=== PATIENT | male | born 1990 | race Caucasian/White ===

== ENCOUNTER 2016-07-22 16:29 | Inpatient (IN) | payer OTHER ==
[2016-07-22 17:41] VITALS: BMI 26.6
--- NOTE | 2016-07-22 20:53 | HP ---
COWS - Scale Resting Pulse: 1= [place] 81-100 Sweatin= Chills/Flushing Restless Observation: 1= Difficult to Sit Still Pupil Size: 0= Normal to Room Light Bone or Joint Aches: 2= Severe Diffuse Aches Runny Nose/ Eye Tearin= Runny Nose/Eyes GI Upset > 30mins: 1= Stomach Cramp Tremor Observation: 2= Slight Tremor Visible Yawning Observation: 0= None Anxiety or Irritability: 2=Irritable/Anxious Goose Flesh Skin: 0=Smooth Skin COWS Score: 12 CIWA Score - CIWA Score Nausea/Vomitin-No Nausea/No Vomiting Muscle Tremors: 2 Anxiety: 2 Agitation: 1-Slight > Activity Paroxysmal Sweats: 1-Minimal Palms Moist Orientation: 0-Oriented Tacttile Disturbances: 0-None Auditory Disturbances: 0-None Visual Disturbances: 0-None Headache: 0-None Present CIWA-Ar Total Score: 6 Admission ROS S - HPI Chief Complaint: withdrawal sx Allergies/Adverse Reactions: Allergies Allergy/AdvReac Type Severity Reaction Status Date / Time No Known Allergies Allergy Verified 07/22/16 20:50 History of Present Illness: 26 years old male with long history of heroin xanax nicotine dependence, denies medical has anxiety depression longest sobriety 6 months is admitted to detox Exam Limitations: No Limitations - Ebola screening Have you traveled outside of the country in the last 21 days: No Have you had contact with anyone from an Ebola affected area: No Have you been sick,other than usual withdrawal symptoms: No Do you have a fever: No - Review of Systems Constitutional: Chills, Loss of Appetite, Changes in sleep, Unexplained wgt Loss EENT: reports: No Symptoms Reported Respiratory: reports: No Symptoms reported Cardiac: reports: No Symptoms Reported GI: reports: Constipated, Poor Appetite, Poor Fluid Intake, Abdominal cramping : reports: No Symptoms Reported Musculoskeletal: reports: Back Pain, Joint Pain, Muscle Pain, Neck Pain Integumentary: reports: Change in Color (inner elbows both elbows) Neuro: reports: Tremors Endocrine: reports: No Symptoms Reported Hematology: reports: No Symptoms Reported Psychiatric: reports: Judgement Intact, Anxious, Depressed Other Systems: Reviewed and Negative Patient History - Patient Medical History Hx Anemia: No Hx Asthma: No Hx Chronic Obstructive Pulmonary Disease (COPD): No Hx Cancer: No Hx Cardiac Disorders: No Hx Congestive Heart Failure: No Hx Hypertension: No Hx Hypercholesterolemia: No Hx Pacemaker: No HX Cerebrovascular Accident: No Hx Seizures: No Hx Dementia: No Hx Diabetes: No Hx Gastrointestinal Disorders: No Hx Liver Disease: No Hx Genitourinary Disorders: No Hx Sexually Transmitted Disorders: No Hx Renal Disease (ESRD): No Hx Thyroid Disease: No Hx Human Immunodeficiency Virus (HIV): No Hx Hepatitis C: No Hx Depression: Yes Hx Suicide Attempt: No Hx Bipolar Disorder: No Hx Schizophrenia: No - Patient Surgical History Past Surgical History: No - PPD History Previous Implant?: Yes Documented Results: Negative w/o proof Implanted On Prior [facility] Admission?: No PPD to be Administered?: Yes - Smoking Cessation Smoking history: Current every day smoker Have you smoked in the past 12 months: Yes Aproximately how many cigarettes per day: 20 Cigars Per Day: 0 Hx Chewing Tobacco Use: No Initiated information on smoking cessation: Yes 'Breaking Loose' booklet given: 07/22/16 - Substance & Tx. History Hx Alcohol Use: No Hx Substance Use: Yes Substance Use Type: Heroin, Opiates, Tranquilizers Hx Substance Use Treatment: No - Substances Abused Alprazolam (Xanax) Route: Oral Frequency: 3-6 times per week Amount used: 4 mg Age of first use: 19 Date of Last Use: 07/20/16 Heroin Route: Injection Frequency: Daily Amount used: 50 bags Age of first use: 23 Date of Last Use: 07/22/16 Family Disease History - Family Disease History Family History: Denies Admission Physical Exam S - Vital Signs Vital Signs: Vital Signs - 24 hr 07/22/16 17:39 Temperature 97.6 F Pulse Rate 91 H Respiratory 20 Rate Blood Pressure 132/82 - Physical General Appearance: Yes: Appropriately Dressed, Mild Distress, Severe Distress, Tremorous, Irritable, Sweating, Anxious HEENTM: Yes: Hearing grossly Normal, Normal ENT Inspection, Normocephalic, Normal Voice Respiratory: Yes: Chest Non-Tender, Lungs Clear, Normal Breath Sounds, No Respiratory Distress, No Accessory Muscle Use Neck: Yes: Supple, Trachea in good position Breast: Yes: Breasts Symetrical Cardiology: Yes: Regular Rhythm, S1, S2, Tachycardia Abdominal: Yes: Non Tender, Soft Genitourinary: Yes: Within Normal Limits Back: Yes: Normal Inspection Musculoskeletal: Yes: full range of Motion, Gait Steady, Back pain, Muscle Pain Extremities: Yes: Normal Range of Motion, Non-Tender, Tremors Neurological: Yes: Alert, Motor Strength 5/5, Normal Response, Depressed Affect Integumentary: Yes: Warm Lymphatic: Yes: Within Normal Limits - Diagnostic (1) Opioid dependence with withdrawal Current Visit: Yes Status: Acute (2) Nicotine dependence Current Visit: Yes Status: Acute Qualifiers: Nicotine product type: cigarettes Substance use status: uncomplicated Qualified Code(s): F17.210 - Nicotine dependence, cigarettes, uncomplicated (3) Weight loss Current Visit: Yes Status: Acute Cleared for Admission [facility] - Detox or Rehab [facility] Level of Care: Medically Managed Detox Regimen/Protocol: Methadone [facility] Breath Alcohol Content Breath Alcohol Content: 0 Urine Drug Screen - Control Is Test Valid: Yes - Results Drug Screen Negative: No Urine Drug Screen Results: OPI-Opiates, BZO-Benzodiazepines, OXY-Oxycodone
[2016-07-22] MEDS ORDERED: P-EPHED 60MG/TRIPROLIDI 2.5MG TABLET PO PRN (20:58)
[2016-07-22] MEDS ORDERED: LOPERAMIDE HCL 2 MG CAPSULE PO PRN (20:58)
[2016-07-22] MEDS ORDERED: MAG HYDROX/AL HYDROX/SIMETH 30 ML UNIT-DOSE CUP PO PRN (20:58)
[2016-07-22] MEDS ORDERED: diphenhydrAMINE HCL 50 MG CAPSULE PO PRN (20:58)
[2016-07-22] MEDS ORDERED: METHADONE HCL 10 MG TABLET (FOR DETOX USE ONLY) PO ONE ×2 (20:58→23:00)
[2016-07-22] MEDS ORDERED: MAGNESIUM CITRATE 300 ML BOTTLE PO PRN (20:58)
[2016-07-22] MEDS ORDERED: guaiFENesin/D-METHORPHAN HB 10 ML UNIT-DOSE CUPS PO PRN (20:58)
[2016-07-22] MEDS ORDERED: IBUPROFEN 400 MG TABLET (FP) PO PRN (20:58)
[2016-07-22] MEDS ORDERED: MAGNESIUM HYDROX 2400MG/30ML ORAL SUSPENSION 30 ML CUP PO PRN (20:58)
[2016-07-22] MEDS ORDERED: ACETAMINOPHEN 325 MG TABLET (FP) PO PRN (20:58)
[2016-07-22] MEDS ORDERED: MENTHOL/PHENOL 1 EACH UD MM PRN (20:58)
[2016-07-22] MEDS: diazePAM 5 MG TABLET PO PRN (22:30)
[2016-07-22] MEDS: THIAMINE HCL 100 MG TABLET (FP) PO SCH (22:31)
[2016-07-22] MEDS: NICOTINE POLACRILEX 2 MG GUM BC PRN (22:34)
[2016-07-22 23:13] LABS: PH,URINE 6.5 (5.0-8.0); URINE APPEARANCE CLEAR; URINE BILIRUBIN NEGATIVE (NEGATIVE); URINE BLOOD NEGATIVE (NEGATIVE); URINE COLOR LT. YELLOW; URINE GLUCOSE (UA) NEGATIVE (NEGATIVE); URINE KETONE TRACE (NEGATIVE); URINE LEUK ESTERASE NEGATIVE (NEGATIVE); URINE NITRITE NEGATIVE (NEGATIVE); URINE PROTEIN NEGATIVE (NEGATIVE); URINE UROBILINOGEN 0.2 E.U/dl E.U./dl (0.2-1.0)
[2016-07-23 09:59] LABS: MCH 31.5 pg (25.7-33.7); MCHC 34.6 g/dl (32.0-35.9); MEAN CELL VOLUME 91.2 fl (80-96); PLATELET COUNT 293 K/MM3 (134-434); RDW 12.6 % (11.9-15.9); WHITE BLOOD COUNT 7.6 K/mm3 (4.0-10.0)
[2016-07-23] MEDS ORDERED: METHADONE HCL 10 MG TABLET (FOR DETOX USE ONLY) PO ONE (10:00)
--- NOTE | 2016-07-23 10:10 | PN ---
S CIWA - CIWA Score Nausea/Vomitin Muscle Tremors: 3 Anxiety: 3 Agitation: 3 Paroxysmal Sweats: 1-Minimal Palms Moist Orientation: 0-Oriented Tacttile Disturbances: 1-Very Mild Itch/Numbness Auditory Disturbances: 1-Very Mild Visual Disturbances: 1-Very Mild Sensitivity Headache: 2-Mild CIWA-Ar Total Score: 18 BHS COWS - Scale Resting Pulse: 1= [place] 81-100 Sweatin=Flushed/Facial Moisture Restless Observation: 3= Extraneous Movement Pupil Size: 1= Pupils >than Normal Bone or Joint Aches: 2= Severe Diffuse Aches Runny Nose/ Eye Tearin= Runny Nose/Eyes GI Upset > 30mins: 3= Vomiting/Diarrhea Tremor Observation of Outstretched Hands: 2= Slight Tremor Visible Yawning Observation: 1= 1-2x During Session Anxiety or Irritability: 2=Irritable/Anxious Goose Flesh Skin: 0=Smooth Skin COWS Score: 19 S Progress Note (SOAP) Subjective: ALERT,IRRITABLE,ANXIOUS,INTERRUPTED SLEEP,TREMOR,PAIN IN THE BODY AND BACK Objective: 07/23/16 10:09 Vital Signs Temperature 95.9 F L 07/23/16 09:36 Pulse Rate 82 07/23/16 09:36 Respiratory Rate 18 07/23/16 09:36 Blood Pressure 127/84 07/23/16 09:36 O2 Sat by Pulse Oximetry (%) EKG NSR Laboratory Last Values Urine Color Lt. yellow 07/22/16 23:00 Urine Appearance Clear 07/22/16 23:00 Urine pH 6.5 (5.0-8.0) 07/22/16 23:00 Ur Specific [place] 1.015 (1.001-1.035) 07/22/16 23:00 Urine Protein Negative (NEGATIVE) 07/22/16 23:00 Urine Glucose (UA) Negative (NEGATIVE) 07/22/16 23:00 Urine Ketones Trace (NEGATIVE) H 07/22/16 23:00 Urine Blood Negative (NEGATIVE) 07/22/16 23:00 Urine Nitrite Negative (NEGATIVE) 07/22/16 23:00 Urine Bilirubin Negative (NEGATIVE) 07/22/16 23:00 Urine Urobilinogen 0.2 e.u/dl E.U./dl (0.2-1.0) 07/22/16 23:00 Ur Leukocyte Esterase Negative (NEGATIVE) 07/22/16 23:00 LABS PENDING Assessment: 07/23/16 10:10 WITHDRAWAL SYMPTOM Plan: CONTINUE DETOX
[2016-07-23] MEDS: PRENATAL VITAMINS W/ FOLIC ACID TABLET (FP) PO SCH (10:13)
[2016-07-23] MEDS: diazePAM 5 MG TABLET PO PRN ×4 (10:13→22:15)
[2016-07-23] MEDS: NICOTINE 21 MG/24 HOURS TOPICAL PATCH TD SCH (10:14)
[2016-07-23] MEDS: NICOTINE POLACRILEX 2 MG GUM BC PRN ×3 (10:16→17:27)
[2016-07-23 10:27] LABS: ALBUMIN 3.6 g/dl (3.4-5.0); ALK PHOS 89 U/L (45-117); ANION GAP 9 (8-16); BILIRUBIN,TOTAL 0.3 mg/dL (0.2-1.0); CALCIUM 9.1 mg/dL (8.5-10.1); CO2 29 mmol/L (21-32); CREATININE 0.9 mg/dL (0.7-1.3); GLUCOSE,RANDOM 93 mg/dL (74-106); SGOT/AST 17 U/L (15-37); SGPT/ALT 27 U/L (12-78); TOT PROT 6.8 g/dl (6.4-8.2)
[2016-07-23] MEDS ORDERED: cloNIDine HCL 0.1 MG TABLET PO ONE (13:01)
--- NOTE | 2016-07-23 15:01 | CONSULT ---
[facility] Psychiatric Consult - Data Date of interview: 07/23/16 Admission source: 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 Substance Abuse History: - Smoking Cessation. Smoking history: Current every day smoker. Have you smoked in the past 12 months: Yes. Aproximately how many cigarettes per day: 20. Cigars Per Day: 0. Hx Chewing Tobacco Use: No. Initiated information on smoking cessation: Yes. 'Breaking Loose' booklet given : 07/22/16. - Substance & Tx. History. Hx Alcohol Use: No. Hx Substance Use: Yes. Substance Use Type: Heroin, Opiates, Tranquilizers. Hx Substance Use Treatment: No. - Substances Abused. Alprazolam (Xanax). Route: Oral. Frequency: 3-6 times per week. Amount used: 4 mg. Age of first use: 19. Date of Last Use: 07/20/16. Heroin. Route: Injection. Frequency: Daily. Amount used: 50 bags. Age of first use: 23. Date of Last Use: 07/22/16. Patient confirmed. Medical History: Patient endorses good general health. Psychiatric History: No reported history of psychiatric hospitalizations.However ,the patient indicates recent treatment for anxiety and depression.Mr Haley was given scripts for bupropion 300 mg/day + seroquel 150 mg/hs (as shown in review of pharmacy claims of 06/25/16 @ [facility] # [id number]).He states that he does not want to continue with bupropion and he is now requesting prozac + seroquel.Patient has also indicated that he is " not always " compliant with his prescribed medications.No reported history of suicide attempts. Physical/Sexual Abuse/Trauma History: Patient denies. Additional Comment: Urine Drug Screen Results: OPI-Opiates, BZO-Benzodiazepines , OXY-Oxycodone.Noted. Mental Status Exam - Mental Status Exam Alert and Oriented to: Time, Place, Person Cognitive Function: Good Patient Appearance: Well Groomed Mood: Nervous, Withdrawn, Irritable Affect: Mood Congruent Patient Behavior: Fatigued, Guarded, Cooperative Speech Pattern: Clear, Appropriate Voice Loudness: Normal Thought Process: Goal Oriented Thought Disorder: Not Present Hallucinations: Denies Suicidal Ideation: Denies Homicidal Ideation: Denies Insight/Judgement: Poor Sleep: Poorly, Difficulty falling asleep Appetite: Good Muscle strength/Tone: Normal Gait/Station: Normal Psychiatric Findings - Problem List ([place] 1, 2,3) (1) Opioid dependence with withdrawal Current Visit: Yes Status: Acute (2) Nicotine dependence Current Visit: Yes Status: Acute Qualifiers: Nicotine product type: cigarettes Substance use status: uncomplicated Qualified Code(s): F17.210 - Nicotine dependence, cigarettes, uncomplicated (3) Sedative hypnotic or anxiolytic dependence Current Visit: Yes Status: Acute (4) Substance induced mood disorder Current Visit: Yes Status: Acute (5) Mood disorder Current Visit: Yes Status: Suspected (6) Insomnia Current Visit: Yes Status: Acute - Initial Treatment Plan Initial Treatment Plan: Psychoeducation.Detoxification.Medications : prozac 10 mg po daily + seroquel 100 mg po hs.Side effects/benefits discussed with patient.He agrees with this plan of care.Observation.
--- NOTE | 2016-07-23 18:10 | EKG ---
Test Reason : Blood Pressure : / mmHG Vent. Rate : 084 BPM Atrial Rate : 084 BPM P-R Int : 180 ms QRS Dur : 098 ms QT Int : 378 ms P-R-T Axes : 070 063 065 degrees QTc Int : 446 ms NORMAL SINUS RHYTHM MINIMAL VOLTAGE CRITERIA FOR LVH, MAY BE NORMAL VARIANT BORDERLINE ECG NO PREVIOUS ECGS AVAILABLE Confirmed by CARLOS KEITA MD ([id number]) on 07/23/2016 6:10:02 PM Referred By: Confirmed By:CARLOS KEITA MD
[2016-07-23] MEDS: THIAMINE HCL 100 MG TABLET (FP) PO SCH (22:15)
[2016-07-23] MEDS: QUEtiapine FUMARATE 100 MG TABLET (FP) PO SCH (22:15)
[2016-07-23] MEDS: cloNIDine HCL 0.1 MG TABLET PO SCH (22:16)
[2016-07-24] MEDS: diazePAM 5 MG TABLET PO PRN ×4 (07:27→22:29)
--- NOTE | 2016-07-24 09:12 | PN ---
[facility] CIWA - CIWA Score Nausea/Vomitin Muscle Tremors: 3 Anxiety: 3 Agitation: 2 Paroxysmal Sweats: 1-Minimal Palms Moist Orientation: 0-Oriented Tacttile Disturbances: 1-Very Mild Itch/Numbness Auditory Disturbances: 1-Very Mild Visual Disturbances: 1-Very Mild Sensitivity Headache: 2-Mild CIWA-Ar Total Score: 17 BHS COWS - Scale Resting Pulse: 0= [place] 80 or Below Sweatin= Chills/Flushing Restless Observation: 3= Extraneous Movement Pupil Size: 1= Pupils >than Normal Bone or Joint Aches: 2= Severe Diffuse Aches Runny Nose/ Eye Tearin= Runny Nose/Eyes GI Upset > 30mins: 3= Vomiting/Diarrhea Tremor Observation of Outstretched Hands: 2= Slight Tremor Visible Yawning Observation: 1= 1-2x During Session Anxiety or Irritability: 2=Irritable/Anxious Goose Flesh Skin: 0=Smooth Skin COWS Score: 17 S Progress Note (SOAP) Subjective: ALERT,IRRITABLE,ANXIOUS,PAIN IN THE BODY AND BACK,TREMOR,INTERRUPTED SLEEP Objective: 07/24/16 09:10 Vital Signs Temperature 96.7 F L 07/24/16 06:27 Pulse Rate 74 07/24/16 06:27 Respiratory Rate 18 07/24/16 06:27 Blood Pressure 122/70 07/24/16 06:27 O2 Sat by Pulse Oximetry (%) Laboratory Last Values WBC 7.6 K/mm3 (4.0-10.0) 07/23/16 07:00 RBC 4.58 M/mm3 (4.00-5.60) 07/23/16 07:00 Hgb 14.4 GM/dL (11.7-16.9) 07/23/16 07:00 Hct 41.8 % (35.4-49) 07/23/16 07:00 MCV 91.2 fl (80-96) 07/23/16 07:00 MCHC 34.6 g/dl (32.0-35.9) 07/23/16 07:00 RDW 12.6 % (11.9-15.9) 07/23/16 07:00 Plt Count 293 K/MM3 (134-434) 07/23/16 07:00 MPV 9.0 fl (7.5-11.1) 07/23/16 07:00 Sodium 142 mmol/L (136-145) 07/23/16 07:00 Potassium 4.0 mmol/L (3.5-5.1) 07/23/16 07:00 Chloride 104 mmol/L (98-107) 07/23/16 07:00 Carbon Dioxide 29 mmol/L (21-32) 07/23/16 07:00 Anion Gap 9 (8-16) 07/23/16 07:00 BUN 17 mg/dL (7-18) 07/23/16 07:00 Creatinine 0.9 mg/dL (0.7-1.3) 07/23/16 07:00 Creat Clearance w eGFR > 60 (>60) 07/23/16 07:00 Random Glucose 93 mg/dL (74-106) 07/23/16 07:00 Calcium 9.1 mg/dL (8.5-10.1) 07/23/16 07:00 Total Bilirubin 0.3 mg/dL (0.2-1.0) 07/23/16 07:00 AST 17 U/L (15-37) 07/23/16 07:00 ALT 27 U/L (12-78) 07/23/16 07:00 Alkaline Phosphatase 89 U/L (45-117) 07/23/16 07:00 Total Protein 6.8 g/dl (6.4-8.2) 07/23/16 07:00 Albumin 3.6 g/dl (3.4-5.0) 07/23/16 07:00 Urine Color Lt. yellow 07/22/16 23:00 Urine Appearance Clear 07/22/16 23:00 Urine pH 6.5 (5.0-8.0) 07/22/16 23:00 Ur Specific [place] 1.015 (1.001-1.035) 07/22/16 23:00 Urine Protein Negative (NEGATIVE) 07/22/16 23:00 Urine Glucose (UA) Negative (NEGATIVE) 07/22/16 23:00 Urine Ketones Trace (NEGATIVE) H 07/22/16 23:00 Urine Blood Negative (NEGATIVE) 07/22/16 23:00 Urine Nitrite Negative (NEGATIVE) 07/22/16 23:00 Urine Bilirubin Negative (NEGATIVE) 07/22/16 23:00 Urine Urobilinogen 0.2 e.u/dl E.U./dl (0.2-1.0) 07/22/16 23:00 Ur Leukocyte Esterase Negative (NEGATIVE) 07/22/16 23:00 RPR Titer Nonreactive (NONREACTIVE) 07/23/16 07:00 Assessment: 07/24/16 09:11 WITHDRAWAL SYMPTOM Plan: CONTINUE DETOX
[2016-07-24] MEDS ORDERED: METHADONE HCL 5 MG TABLET (FOR DETOX USE ONLY) PO ONE (10:00)
[2016-07-24] MEDS: cloNIDine HCL 0.1 MG TABLET PO SCH ×2 (10:12→22:29)
[2016-07-24] MEDS: PRENATAL VITAMINS W/ FOLIC ACID TABLET (FP) PO SCH (10:12)
[2016-07-24] MEDS: NICOTINE 21 MG/24 HOURS TOPICAL PATCH TD SCH ×2 (10:13→10:15)
[2016-07-24] MEDS: NICOTINE POLACRILEX 2 MG GUM BC PRN ×2 (10:13→19:21)
[2016-07-24] MEDS: FLUoxetine HCL 10 MG CAPSULE (FP) PO SCH (10:14)
[2016-07-24] MEDS ORDERED: QUEtiapine FUMARATE 50 MG TABLET ONE (21:56)
[2016-07-24] MEDS: THIAMINE HCL 100 MG TABLET (FP) PO SCH (22:29)
[2016-07-24] MEDS: QUEtiapine FUMARATE 100 MG TABLET (FP) PO SCH (22:29)
[2016-07-25] MEDS: diazePAM 5 MG TABLET PO PRN ×4 (06:50→20:40)
--- NOTE | 2016-07-25 09:05 | PN ---
S Progress Note (SOAP) Subjective: ALERT,IRRITABLE,ANXIOUS,INTERRUPTED SLEEP,PAIN IN THE BODY AND BACK Objective: 07/25/16 09:17 Vital Signs Temperature 98.9 F 07/25/16 06:39 Pulse Rate 76 07/25/16 06:39 Respiratory Rate 18 07/25/16 06:39 Blood Pressure 118/74 07/25/16 06:39 O2 Sat by Pulse Oximetry (%) Assessment: 07/25/16 09:17 WITHDRAWAL SYMPTOM Plan: CONTINUE DETOX
--- NOTE | 2016-07-25 09:41 | PN ---
[facility] Progress Note Note: METHADONE DOSE ADJUST,METHADONE 10 MGS PO TODAY,AND METHADONE 5 MGS PO 07/26/16
[2016-07-25] MEDS ORDERED: METHADONE HCL 5 MG TABLET (FOR DETOX USE ONLY) PO ONE (10:00)
[2016-07-25] MEDS ORDERED: METHADONE HCL 10 MG TABLET (FOR DETOX USE ONLY) PO ONE (10:00)
[2016-07-25] MEDS: cloNIDine HCL 0.1 MG TABLET PO SCH ×2 (10:20→21:59)
[2016-07-25] MEDS: FLUoxetine HCL 10 MG CAPSULE (FP) PO SCH (10:20)
[2016-07-25] MEDS: PRENATAL VITAMINS W/ FOLIC ACID TABLET (FP) PO SCH (10:20)
[2016-07-25] MEDS: NICOTINE 21 MG/24 HOURS TOPICAL PATCH TD SCH (10:20)
[2016-07-25] MEDS: NICOTINE POLACRILEX 2 MG GUM BC PRN ×2 (10:21→17:48)
[2016-07-25] MEDS: THIAMINE HCL 100 MG TABLET (FP) PO SCH (21:59)
[2016-07-25] MEDS: QUEtiapine FUMARATE 100 MG TABLET (FP) PO SCH (21:59)
[2016-07-26] MEDS ORDERED: METHADONE HCL 5 MG TABLET (FOR DETOX USE ONLY) PO ONE (06:00)
[2016-07-26 09:30] VITALS: BP 127/73; PULSE 98; TEMP 98.6
[2016-07-26] MEDS ORDERED: METHADONE HCL 10 MG TABLET (FOR DETOX USE ONLY) PO ONE (10:00)
[2016-07-26] MEDS: FLUoxetine HCL 10 MG CAPSULE (FP) PO SCH (10:07)
[2016-07-26] MEDS: cloNIDine HCL 0.1 MG TABLET PO SCH (10:07)
[2016-07-26] MEDS: NICOTINE POLACRILEX 2 MG GUM BC PRN (10:07)
[2016-07-26] MEDS: NICOTINE 21 MG/24 HOURS TOPICAL PATCH TD SCH (10:07)
[2016-07-26] MEDS: PRENATAL VITAMINS W/ FOLIC ACID TABLET (FP) PO SCH (10:07)
--- NOTE | 2016-07-26 10:48 | DS ---
[facility] Detox Discharge Summary Admission Date: 07/22/16 Discharge Date: 07/26/16 - History Present History: Opioid Dependence, Sedative Dependence Pertinent Past History: INSOMNIA - Physical Exam Results Vital Signs: Vital Signs Temperature 98.6 F 07/26/16 09:29 Pulse Rate 98 H 07/26/16 09:29 Respiratory Rate 18 07/26/16 09:29 Blood Pressure 127/73 07/26/16 09:29 O2 Sat by Pulse Oximetry (%) Pertinent Admission Physical Exam Findings: WITHDRAWAL SX. Laboratory Tests 07/22/16 07/23/16 07/23/16 23:00 07:00 07:00 WBC 7.6 RBC 4.58 Hgb 14.4 Hct 41.8 MCV 91.2 MCHC 34.6 RDW 12.6 Plt Count 293 MPV 9.0 Sodium 142 Potassium 4.0 Chloride 104 Carbon Dioxide 29 Anion Gap 9 BUN 17 Creatinine 0.9 Creat Clearance w eGFR > 60 Random Glucose 93 Calcium 9.1 Total Bilirubin 0.3 AST 17 ALT 27 Alkaline Phosphatase 89 Total Protein 6.8 Albumin 3.6 Urine Color Lt. yellow Urine Appearance Clear Urine pH 6.5 Ur Specific [place] 1.015 Urine Protein Negative Urine Glucose (UA) Negative Urine Ketones Trace H Urine Blood Negative Urine Nitrite Negative Urine Bilirubin Negative Urine Urobilinogen 0.2 e.u/dl Ur Leukocyte Esterase Negative RPR Titer 07/23/16 07:00 RPR Titer Nonreactive LABS NOTED - Treatment Hospital Course: Detox Protocol Followed, Detoxed Safely, Responded well, Discharged Condition Good, Rehab Referral Accepted - Medication Discharge Medications: Ambulatory Orders Quetiapine Fumarate [Seroquel] 100 mg PO HS #30 tablet 07/23/16 - Diagnosis (1) Insomnia Current Visit: Yes Status: Acute (2) Nicotine dependence Current Visit: Yes Status: Acute Qualifiers: Nicotine product type: cigarettes Substance use status: uncomplicated Qualified Code(s): F17.210 - Nicotine dependence, cigarettes, uncomplicated (3) Opioid dependence with withdrawal Current Visit: Yes Status: Acute (4) Substance induced mood disorder Current Visit: Yes Status: Acute (5) Mood disorder Current Visit: Yes Status: Suspected (6) Sedative, hypnotic or anxiolytic dependence with withdrawal, uncomplicated Current Visit: Yes Status: Acute - AMA Did Patient Leave Against Medical Advice: No
[2016-07-27] MEDS ORDERED: METHADONE HCL 5 MG TABLET (FOR DETOX USE ONLY) PO ONE (06:00)
== END 2016-07-26 10:49 | disposition other institution (70) | DRG 773 ==
LOC: YASAS 16:29 → Y3N 21:40
PROVIDERS: ADMIT Internal Medicine; ATTEND Internal Medicine
PROC: HZ2ZZZZ Detoxification Services for Substance Abuse Treatment (ICD-10-PCS; principal; 2016-07-22)
DX: F11.23 Opioid dependence with withdrawal (principal); F13.230 Sedative, hypnotic or anxiolytic dependence with withdrawal, uncomplicated; F17.210 Nicotine dependence, cigarettes, uncomplicated; F19.24 Other psychoactive substance dependence with psychoactive substance-induced mood disorder; F39 Unspecified mood [affective] disorder; G47.00 Insomnia, unspecified; R00.0 Tachycardia, unspecified; Z87.898 Personal history of other specified conditions
CPT/HCPCS: 36415; 80053; 81003; 85027; 86593; 93005; 93010

== ENCOUNTER 2016-07-26 10:44 | Inpatient (IN) | payer OTHER ==
[2016-07-26 11:35] VITALS: BMI 27.8
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
[2016-07-26] MEDS ORDERED: P-EPHED 60MG/TRIPROLIDI 2.5MG TABLET PO PRN (14:38)
[2016-07-26] MEDS ORDERED: MAGNESIUM CITRATE 300 ML BOTTLE PO PRN (14:38)
[2016-07-26] MEDS ORDERED: diphenhydrAMINE HCL 50 MG CAPSULE PO PRN (14:38)
[2016-07-26] MEDS ORDERED: LOPERAMIDE HCL 2 MG CAPSULE PO PRN (14:38)
--- NOTE | 2016-07-26 14:55 | HP ---
[facility] Rehab Assess/Revision - Admission History Admitted to Rehab from: [facility] [place] Date of Admission to Rehab: 07/26/16 - Vital signs Vital Signs: Vital Signs Period Temp Pulse Resp BP Sys/Olivares Pulse Ox Last 24 Hr 98.8 F 103 19 124/66 - Findings Detox History & Physical reviewed: Yes Concur with findings: Yes
[2016-07-26] MEDS ORDERED: METHADONE HCL 5 MG TABLET PO ONE (15:38)
[2016-07-26] MEDS: NICOTINE POLACRILEX 2 MG GUM BUC PRN ×2 (18:28→21:18)
[2016-07-26] MEDS: QUEtiapine FUMARATE 100 MG TABLET (FP) PO SCH (21:52)
[2016-07-26] MEDS: THIAMINE HCL 100 MG TABLET (FP) PO SCH (21:52)
[2016-07-27] MEDS ORDERED: METHADONE HCL 10 MG TABLET PO SCH (06:00)
[2016-07-27] MEDS: NICOTINE POLACRILEX 2 MG GUM BUC PRN ×3 (06:47→15:47)
[2016-07-27] MEDS: NICOTINE 21 MG/24 HOURS TOPICAL PATCH TD SCH (10:51)
[2016-07-27] MEDS: PRENATAL VITAMINS W/ FOLIC ACID TABLET (FP) PO SCH (10:51)
[2016-07-27] MEDS: FLUoxetine HCL 10 MG TABLET PO SCH (10:59)
[2016-07-27] MEDS: ACETAMINOPHEN 325 MG TABLET (FP) PO PRN (15:49)
[2016-07-27] MEDS: QUEtiapine FUMARATE 100 MG TABLET (FP) PO SCH (21:22)
[2016-07-27] MEDS: THIAMINE HCL 100 MG TABLET (FP) PO SCH (21:22)
[2016-07-28] MEDS ORDERED: METHADONE HCL 40 MG DISPERSABLE TABLET PO SCH (06:00)
[2016-07-28] MEDS: MAGNESIUM HYDROX 2400MG/30ML ORAL SUSPENSION 30 ML CUP PO PRN (07:03)
[2016-07-28] MEDS: NICOTINE POLACRILEX 2 MG GUM BUC PRN ×4 (07:03→18:54)
[2016-07-28] MEDS: PRENATAL VITAMINS W/ FOLIC ACID TABLET (FP) PO SCH (10:12)
[2016-07-28] MEDS: FLUoxetine HCL 10 MG TABLET PO SCH (10:13)
[2016-07-28] MEDS: NICOTINE 21 MG/24 HOURS TOPICAL PATCH TD SCH (10:13)
[2016-07-28] MEDS: THIAMINE HCL 100 MG TABLET (FP) PO SCH (21:26)
[2016-07-28] MEDS: QUEtiapine FUMARATE 100 MG TABLET (FP) PO SCH (21:26)
[2016-07-29] MEDS ORDERED: METHADONE HCL 10 MG TABLET ONE (05:28)
[2016-07-29] MEDS ORDERED: METHADONE HCL 40 MG DISPERSABLE TABLET ONE (05:28)
[2016-07-29] MEDS ORDERED: METHADONE HCL 40 MG DISPERSABLE TABLET PO SCH (06:00)
[2016-07-29] MEDS ORDERED: METHADONE 40 MG, METHADONE 10 MG PO SCH (06:00)
[2016-07-29] MEDS: PRENATAL VITAMINS W/ FOLIC ACID TABLET (FP) PO SCH (10:05)
[2016-07-29] MEDS: NICOTINE 21 MG/24 HOURS TOPICAL PATCH TD SCH (10:05)
[2016-07-29] MEDS: FLUoxetine HCL 10 MG TABLET PO SCH (10:06)
[2016-07-29] MEDS: NICOTINE POLACRILEX 2 MG GUM BUC PRN ×3 (10:08→21:18)
[2016-07-29] MEDS: MAGNESIUM HYDROX 2400MG/30ML ORAL SUSPENSION 30 ML CUP PO PRN (10:36)
--- NOTE | 2016-07-29 18:54 | PN ---
[facility] Progress Note Note: RECEIVED NURSE CALL PATIENT IS ANXIOUS RECOMMEND DEEP BREATHING EXERCISE AND DISCUSS WITH PSYCHIATRIST FOR POSSIBLE PSYCHOTROPIC MODIFICATION CONTINUE REHAB
[2016-07-29] MEDS: THIAMINE HCL 100 MG TABLET (FP) PO SCH (21:17)
[2016-07-29] MEDS: QUEtiapine FUMARATE 100 MG TABLET (FP) PO SCH (21:17)
[2016-07-30] MEDS ORDERED: METHADONE HCL 10 MG TABLET ONE (04:13)
[2016-07-30] MEDS ORDERED: METHADONE HCL 40 MG DISPERSABLE TABLET ONE (04:14)
[2016-07-30] MEDS ORDERED: METHADONE HCL 10 MG TABLET PO SCH (06:00)
[2016-07-30] MEDS ORDERED: METHADONE 40 MG, METHADONE 20 MG PO SCH (06:00)
[2016-07-30] MEDS: NICOTINE POLACRILEX 2 MG GUM BUC PRN ×6 (06:03→21:06)
[2016-07-30] MEDS: ACETAMINOPHEN 325 MG TABLET (FP) PO PRN ×2 (06:26→15:06)
[2016-07-30] MEDS: PRENATAL VITAMINS W/ FOLIC ACID TABLET (FP) PO SCH (10:12)
[2016-07-30] MEDS: MAGNESIUM HYDROX 2400MG/30ML ORAL SUSPENSION 30 ML CUP PO PRN (10:12)
[2016-07-30] MEDS: FLUoxetine HCL 10 MG TABLET PO SCH (10:12)
[2016-07-30] MEDS: NICOTINE 21 MG/24 HOURS TOPICAL PATCH TD SCH (10:52)
--- NOTE | 2016-07-30 11:16 | PN ---
Psychiatric Progress Note Vital Signs: Vital Signs Period Temp Pulse Resp BP Sys/Olivares Pulse Ox Last 24 Hr 99 F 99 20-20 130/68 Date of Session: 07/30/16 Chief Complaint:: Anxiety HPI: Patient addressing Opoid and Sedative Dependence comorbid with Nicotine Dependence and Anxiety Disorder ROS: Start Vistaril 50 mg po Q 4hrs prn for anxiety Current Medications: Active Medications Generic Name Dose Route Start Last Admin Trade Name Freq PRN Reason Stop Dose Admin Acetaminophen 650 mg 07/26/16 14:38 07/30/16 06:26 Tylenol - PO 650 mg Q4H PRN Administration FEVER OR PAIN Al Hydroxide/Mg Hydroxide 30 ml 07/26/16 14:38 Mylanta Oral Suspension - PO Q6H PRN DYSPEPSIA Diphenhydramine HCl 50 mg 07/26/16 14:38 Benadryl - PO HSMR1 PRN FOR ITCHING Eucalyptus/Menthol/Phenol/Sorbitol 1 each 07/26/16 14:38 Cepastat Lozenge - MM Q4H PRN SORE THROAT Fluoxetine HCl 10 mg 07/27/16 10:00 07/30/16 10:12 Prozac - PO 10 mg DAILY KELLY Administration Guaifenesin 10 ml 07/26/16 14:38 Robitussin Dm - PO Q6H PRN COUGH Hydroxyzine Pamoate 50 mg 07/30/16 11:09 Vistaril - PO Q4H PRN FOR ITCHING Ibuprofen 400 mg 07/26/16 14:38 Motrin - PO Q6H PRN PAIN Loperamide HCl 4 mg 07/26/16 14:38 Imodium - PO Q6H PRN DIARRHEA Magnesium Hydroxide 30 ml 07/26/16 14:38 07/30/16 10:12 Milk Of Magnesia - PO 30 ml DAILY PRN Administration CONSTIPATION Methadone HCl 40 mg/ Methadone 60 mg 07/30/16 06:00 07/30/16 06:00 HCl 20 mg PO 60 mg DAILY@0600 KELLY Administration Nicotine 21 mg 07/27/16 10:00 07/30/16 10:52 Nicoderm Patch - TD 21 mg DAILY KELLY Administration Nicotine Polacrilex 2 mg 07/26/16 14:38 07/30/16 10:15 Nicorette Gum - BUC 2 mg Q2H PRN Administration NICOTINE REPLACEMENT RX Multivit/Folic Acid/Iron 1 tab 07/27/16 10:00 07/30/16 10:12 Vitamins (Sjr) - PO 1 tab DAILY KELLY Administration Pseudoephedrine/Triprolidine 1 combo 07/26/16 14:38 Actifed - PO TID PRN NASAL CONGESTION Quetiapine Fumarate 100 mg 07/26/16 22:00 07/29/16 21:17 Seroquel - PO 100 mg HS KELLY Administration Thiamine HCl 100 mg 07/26/16 22:00 07/29/16 21:17 Vitamin B1 - PO 100 mg HS KELLY Administration Current Side Effect: No Lab tests ordered: Yes Lab tests reviewed: Yes Provider note:: Patient reports that he has been feeling anxious despite taking Prozac 10 mg po daily and Seroquel 100 mg po HS.Told newswriter that he was taking Klonopin for anxiety in the past. He was told by newswriter that he cannot get any Benzodiazepine in this program. Alternative meds for anxiety were presented to him and he was willing to try Vistaril which will be ordered for him at 50 mg po Q 4hrs prn for anxiety Total face to face time:: 25 Mental Status Exam - Mental Status Exam Alert and Oriented to: Time, Place, Person Cognitive Function: Fair Patient Appearance: Well Groomed Mood: Anxious Affect: Appropriate Patient Behavior: Cooperative Speech Pattern: Clear Voice Loudness: Normal Thought Process: Intact Thought Disorder: Not Present Hallucinations: Denies Suicidal Ideation: Denies Homicidal Ideation: Denies Insight/Judgement: Fair Sleep: Fair Appetite: Good Muscle strength/Tone: Normal Gait/Station: Normal Psychiatric Treatment Plan - Problem List (1) Opioid dependence with withdrawal Current Visit: No (2) Sedative hypnotic or anxiolytic dependence Current Visit: No (3) Nicotine dependence Current Visit: No Qualifiers: Nicotine product type: cigarettes Substance use status: uncomplicated Qualified Code(s): F17.210 - Nicotine dependence, cigarettes, uncomplicated (4) Anxiety disorder Current Visit: Yes (5) Substance-induced anxiety disorder Current Visit: Yes (6) ADHD (attention deficit hyperactivity disorder) Current Visit: Yes (7) YOLANDA (generalized anxiety disorder) Current Visit: Yes Initial treatment plan: Start Vistaril 50 mg po Q 4hrs prn for anxiety
[2016-07-30] MEDS ORDERED: hydrOXYzine PAMOATE 50 MG CAPSULE (FP) PO PRN (11:18)
[2016-07-30] MEDS: hydrOXYzine PAMOATE 50 MG CAPSULE (FP) PO PRN ×3 (11:39→18:51)
[2016-07-30] MEDS: QUEtiapine FUMARATE 100 MG TABLET (FP) PO SCH (21:05)
[2016-07-30] MEDS: THIAMINE HCL 100 MG TABLET (FP) PO SCH (21:05)
[2016-07-31] MEDS ORDERED: METHADONE HCL 40 MG DISPERSABLE TABLET ONE (05:07)
[2016-07-31] MEDS ORDERED: METHADONE HCL 10 MG TABLET ONE (05:07)
[2016-07-31] MEDS: METHADONE 40 MG, METHADONE 30 MG PO SCH (06:00)
[2016-07-31] MEDS ORDERED: METHADONE HCL 40 MG DISPERSABLE TABLET PO SCH (06:00)
[2016-07-31] MEDS: NICOTINE POLACRILEX 2 MG GUM BUC PRN ×3 (06:03→21:03)
[2016-07-31] MEDS: MENTHOL/PHENOL 1 EACH UD MM PRN ×3 (06:16→19:15)
[2016-07-31] MEDS: hydrOXYzine PAMOATE 50 MG CAPSULE (FP) PO PRN ×4 (06:16→19:17)
[2016-07-31] MEDS: guaiFENesin/D-METHORPHAN HB 10 ML UNIT-DOSE CUPS PO PRN ×2 (09:32→19:16)
[2016-07-31] MEDS: PRENATAL VITAMINS W/ FOLIC ACID TABLET (FP) PO SCH (09:32)
[2016-07-31] MEDS: FLUoxetine HCL 10 MG TABLET PO SCH (09:33)
[2016-07-31] MEDS: NICOTINE 21 MG/24 HOURS TOPICAL PATCH TD SCH (09:33)
[2016-07-31] MEDS: ACETAMINOPHEN 325 MG TABLET (FP) PO PRN ×2 (09:33→21:03)
[2016-07-31] MEDS: DOCUSATE SODIUM 100 MG CAPSULE (FP) PO SCH ×2 (14:37→21:02)
[2016-07-31] MEDS: QUEtiapine FUMARATE 100 MG TABLET (FP) PO SCH (21:02)
[2016-07-31] MEDS: THIAMINE HCL 100 MG TABLET (FP) PO SCH (21:02)
--- NOTE | 2016-07-31 22:15 | PN ---
[facility] Note: received nurse call patient has hiccups needed to be seen patient is not in distress follow up with hiccups nurse reports hiccups gone, a peer has special technique helped stop hiccups continue rehab
[2016-08-01] MEDS ORDERED: METHADONE HCL 10 MG TABLET ONE (03:30)
[2016-08-01] MEDS ORDERED: METHADONE HCL 40 MG DISPERSABLE TABLET ONE (03:30)
[2016-08-01] MEDS: MENTHOL/PHENOL 1 EACH UD MM PRN ×2 (04:39→14:35)
[2016-08-01] MEDS: METHADONE 40 MG, METHADONE 30 MG PO SCH (06:08)
[2016-08-01] MEDS: FLUoxetine HCL 10 MG TABLET PO SCH ×2 (06:09→10:06)
[2016-08-01] MEDS: DOCUSATE SODIUM 100 MG CAPSULE (FP) PO SCH ×3 (06:09→21:05)
[2016-08-01] MEDS: hydrOXYzine PAMOATE 50 MG CAPSULE (FP) PO PRN ×4 (06:10→18:34)
[2016-08-01] MEDS: NICOTINE POLACRILEX 2 MG GUM BUC PRN ×5 (06:47→21:06)
[2016-08-01] MEDS: PRENATAL VITAMINS W/ FOLIC ACID TABLET (FP) PO SCH (10:05)
[2016-08-01] MEDS: NICOTINE 21 MG/24 HOURS TOPICAL PATCH TD SCH (10:05)
[2016-08-01] MEDS: guaiFENesin/D-METHORPHAN HB 10 ML UNIT-DOSE CUPS PO PRN (10:08)
[2016-08-01] MEDS: ACETAMINOPHEN 325 MG TABLET (FP) PO PRN ×2 (10:08→18:33)
--- NOTE | 2016-08-01 12:02 | PN ---
Psychiatric Progress Note Vital Signs: Vital Signs Period Temp Pulse Resp BP Sys/Olivares Pulse Ox Last 24 Hr 97.1 F-100 F 72 18-18 113/64 Date of Session: 08/01/16 HPI: Patient addressing Opoid and Sedative Dependence comorbid with Nicotine Dependence and Anxiety Disorder Current Medications: Active Medications Generic Name Dose Route Start Last Admin Trade Name Freq PRN Reason Stop Dose Admin Acetaminophen 650 mg 07/26/16 14:38 08/01/16 10:08 Tylenol - PO 650 mg Q4H PRN Administration FEVER OR PAIN Al Hydroxide/Mg Hydroxide 30 ml 07/26/16 14:38 Mylanta Oral Suspension - PO Q6H PRN DYSPEPSIA Diphenhydramine HCl 50 mg 07/26/16 14:38 Benadryl - PO HSMR1 PRN FOR ITCHING Docusate Sodium 100 mg 07/31/16 14:00 08/01/16 06:09 Colace - PO 100 mg TID KELLY Administration Eucalyptus/Menthol/Phenol/Sorbitol 1 each 07/26/16 14:38 08/01/16 04:39 Cepastat Lozenge - MM 1 each Q4H PRN Administration SORE THROAT Fluoxetine HCl 10 mg 08/01/16 06:00 08/01/16 10:06 Prozac - PO Not Given DAILY [facility] Guaifenesin 10 ml 07/26/16 14:38 08/01/16 10:08 Robitussin Dm - PO 10 ml Q6H PRN Administration COUGH Hydrocortisone 1 applic 07/30/16 15:12 Hytone 1% Cream - TP BID PRN DRY SKIN Hydroxyzine Pamoate 50 mg 07/30/16 11:09 08/01/16 10:07 Vistaril - PO 50 mg Q4H PRN Administration FOR ITCHING Ibuprofen 400 mg 07/26/16 14:38 Motrin - PO Q6H PRN PAIN Loperamide HCl 4 mg 07/26/16 14:38 Imodium - PO Q6H PRN DIARRHEA Magnesium Hydroxide 30 ml 07/26/16 14:38 07/30/16 10:12 Milk Of Magnesia - PO 30 ml DAILY PRN Administration CONSTIPATION Methadone HCl 40 mg/ Methadone 70 mg 07/31/16 06:00 08/01/16 06:08 HCl 30 mg PO 08/06/16 05:59 70 mg DAILY@0600 KELLY Administration Nicotine 21 mg 07/27/16 10:00 08/01/16 10:05 Nicoderm Patch - TD 21 mg DAILY KELLY Administration Nicotine Polacrilex 2 mg 07/26/16 14:38 08/01/16 10:10 Nicorette Gum - BUC 2 mg Q2H PRN Administration NICOTINE REPLACEMENT RX Multivit/Folic Acid/Iron 1 tab 07/27/16 10:00 08/01/16 10:05 Vitamins (Sjr) - PO 1 tab DAILY KELLY Administration Pseudoephedrine/Triprolidine 1 combo 07/26/16 14:38 08/01/16 10:07 Actifed - PO 1 combo TID PRN Administration NASAL CONGESTION Quetiapine Fumarate 100 mg 07/26/16 22:00 07/31/16 21:02 Seroquel - PO 100 mg HS KELLY Administration Thiamine HCl 100 mg 07/26/16 22:00 07/31/16 21:02 Vitamin B1 - PO 100 mg HS KELLY Administration Medication(s) Change(s): Increase Prozac dosage to 20 mg po daily Current Side Effect: No Lab tests ordered: Yes Lab tests reviewed: Yes Provider note:: Patient requests that Prozac dosage be increased to 20 mg po daily. He is now on 10 mg po daily and continues to complain of anxiety in addition feeling depressed now. 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 Total face to face time:: 25 Mental Status Exam - Mental Status Exam Alert and Oriented to: Time, Place, Person Cognitive Function: Fair Patient Appearance: Well Groomed Mood: Depressed (mildly), Anxious Affect: Normal Range Patient Behavior: Cooperative Speech Pattern: Clear Voice Loudness: Normal Thought Process: Intact Thought Disorder: Not Present Hallucinations: Denies Suicidal Ideation: Denies Insight/Judgement: Fair Sleep: Fair Appetite: Good Muscle strength/Tone: Normal Gait/Station: Normal Psychiatric Treatment Plan - Problem List (1) Opioid dependence with withdrawal Current Visit: No (2) Sedative hypnotic or anxiolytic dependence Current Visit: No (3) Nicotine dependence Current Visit: No Qualifiers: Nicotine product type: cigarettes Substance use status: uncomplicated Qualified Code(s): F17.210 - Nicotine dependence, cigarettes, uncomplicated (4) Anxiety disorder Current Visit: Yes (5) Substance-induced anxiety disorder Current Visit: Yes (6) ADHD (attention deficit hyperactivity disorder) Current Visit: Yes (7) YOLANDA (generalized anxiety disorder) Current Visit: Yes Initial treatment plan: 1) Discontinue Prozac 10 mg po daily. 2) Start Prozac 20 mg po daily. 3) Monitor progress
[2016-08-01] MEDS: IBUPROFEN 400 MG TABLET (FP) PO PRN (13:17)
--- NOTE | 2016-08-01 13:19 | PN ---
[facility] Progress Note (SOAP) Subjective: sorethroat, fever , bodyaches Objective: 08/01/16 13:17 Vital Signs Temperature 98.4 F 08/01/16 06:56 Pulse Rate 72 08/01/16 06:56 Respiratory Rate 18 08/01/16 06:56 Blood Pressure 113/64 08/01/16 06:56 O2 Sat by Pulse Oximetry (%) pt aox3 diaphoretic oral +erythema small cx nodes pastora Assessment: 08/01/16 13:18 pharyngitis Plan: fluids motrin prn z-pack
[2016-08-01] MEDS ORDERED: AZITHROMYCIN 250 MG TABLET (FP) PO ONE (13:45)
[2016-08-01] MEDS: THIAMINE HCL 100 MG TABLET (FP) PO SCH (21:05)
[2016-08-01] MEDS: QUEtiapine FUMARATE 100 MG TABLET (FP) PO SCH (21:05)
[2016-08-02] MEDS ORDERED: METHADONE HCL 10 MG TABLET ONE (04:27)
[2016-08-02] MEDS ORDERED: METHADONE HCL 40 MG DISPERSABLE TABLET ONE (04:27)
[2016-08-02] MEDS: METHADONE 40 MG, METHADONE 30 MG PO SCH (06:09)
[2016-08-02] MEDS: DOCUSATE SODIUM 100 MG CAPSULE (FP) PO SCH ×3 (06:09→21:08)
[2016-08-02] MEDS: ACETAMINOPHEN 325 MG TABLET (FP) PO PRN ×2 (06:11→21:10)
[2016-08-02] MEDS: hydrOXYzine PAMOATE 50 MG CAPSULE (FP) PO PRN ×2 (06:11→18:59)
--- NOTE | 2016-08-02 07:25 | PN ---
[facility] Progress Note Note: ASKED TO SEE PT FOR FEVER 102.3. PT C/O SOB, FEVER, CHILLS. DENIES C.P., N/V/D LYING IN BED SOB. SKIN RED, WARM TO TOUCH LUNGS CTA B/L 02 SAT 90 %RA CV TACHY 121 BPM 26 Y.O MALE WITH H/O OPIOID DEPENDENCE WITH IV USE. COMPLETED DETOX NOW IN REHAB. STARTED ON Z-PACK YESTERDAY FOR PHARYNGITIS AND LOW GRADE FEVER. NOW WITH FEVER 102.3 NOT RELIEVED WITH ANTIPYRETICS REPEAT TEMP. 102.9 AFTER TYLENOL Vital Signs - 24 hr 08/02/16 08/02/16 08/02/16 03:30 06:00 07:15 Temperature 102.3 F H 102.9 F H Pulse Rate 131 H Respiratory 20 20 Rate Blood Pressure 136/75 TRANFER PT OUT FOR FEVER, R/O PNA, ENDOCARDITIS TRANSFER TO [facility] FOR EVAL GIVE 02 2 NC PENDING TRANSFER REPORT GIVEN DR. STILL
[2016-08-02] MEDS: NICOTINE 21 MG/24 HOURS TOPICAL PATCH TD SCH (10:38)
[2016-08-02] MEDS: PRENATAL VITAMINS W/ FOLIC ACID TABLET (FP) PO SCH (10:38)
[2016-08-02] MEDS: AZITHROMYCIN 250 MG TABLET (FP) PO SCH (10:39)
[2016-08-02] MEDS: FLUoxetine HCL 20 MG CAPSULE (FP) PO SCH (10:39)
[2016-08-02] MEDS: NICOTINE POLACRILEX 2 MG GUM BUC PRN ×2 (18:59→21:13)
[2016-08-02] MEDS: guaiFENesin/D-METHORPHAN HB 10 ML UNIT-DOSE CUPS PO PRN (19:01)
[2016-08-02] MEDS: MENTHOL/PHENOL 1 EACH UD MM PRN (19:02)
[2016-08-02] MEDS: THIAMINE HCL 100 MG TABLET (FP) PO SCH (21:08)
[2016-08-02] MEDS: QUEtiapine FUMARATE 100 MG TABLET (FP) PO SCH (21:08)
[2016-08-03] MEDS ORDERED: METHADONE HCL 40 MG DISPERSABLE TABLET ONE (06:08)
[2016-08-03] MEDS ORDERED: METHADONE HCL 10 MG TABLET ONE (06:08)
[2016-08-03] MEDS: DOCUSATE SODIUM 100 MG CAPSULE (FP) PO SCH ×3 (06:18→21:22)
[2016-08-03] MEDS: METHADONE 40 MG, METHADONE 30 MG PO SCH (06:18)
[2016-08-03] MEDS: hydrOXYzine PAMOATE 50 MG CAPSULE (FP) PO PRN ×4 (06:21→19:33)
[2016-08-03] MEDS: NICOTINE POLACRILEX 2 MG GUM BUC PRN ×5 (06:24→21:23)
[2016-08-03] MEDS: FLUoxetine HCL 20 MG CAPSULE (FP) PO SCH (10:06)
[2016-08-03] MEDS: AZITHROMYCIN 250 MG TABLET (FP) PO SCH (10:06)
[2016-08-03] MEDS: PRENATAL VITAMINS W/ FOLIC ACID TABLET (FP) PO SCH (10:06)
[2016-08-03] MEDS: NICOTINE 21 MG/24 HOURS TOPICAL PATCH TD SCH (10:06)
[2016-08-03] MEDS: MENTHOL/PHENOL 1 EACH UD MM PRN (10:09)
[2016-08-03] MEDS: HYDROCORTISONE 1% TOPICAL CREAM 30 GM TUBE TP PRN (14:13)
[2016-08-03] MEDS: QUEtiapine FUMARATE 100 MG TABLET (FP) PO SCH (21:22)
[2016-08-03] MEDS: THIAMINE HCL 100 MG TABLET (FP) PO SCH (21:22)
[2016-08-04] MEDS ORDERED: METHADONE HCL 40 MG DISPERSABLE TABLET ONE (03:56)
[2016-08-04] MEDS ORDERED: METHADONE HCL 10 MG TABLET ONE (03:56)
[2016-08-04] MEDS: hydrOXYzine PAMOATE 50 MG CAPSULE (FP) PO PRN ×4 (06:01→18:48)
[2016-08-04] MEDS: DOCUSATE SODIUM 100 MG CAPSULE (FP) PO SCH ×3 (06:01→21:11)
[2016-08-04] MEDS: NICOTINE POLACRILEX 2 MG GUM BUC PRN ×4 (06:02→18:48)
[2016-08-04] MEDS: METHADONE 40 MG, METHADONE 30 MG PO SCH (06:02)
[2016-08-04] MEDS: NICOTINE 21 MG/24 HOURS TOPICAL PATCH TD SCH (10:05)
[2016-08-04] MEDS: FLUoxetine HCL 20 MG CAPSULE (FP) PO SCH (10:05)
[2016-08-04] MEDS: AZITHROMYCIN 250 MG TABLET (FP) PO SCH (10:05)
[2016-08-04] MEDS: PRENATAL VITAMINS W/ FOLIC ACID TABLET (FP) PO SCH (10:05)
[2016-08-04] MEDS: HYDROCORTISONE 1% TOPICAL CREAM 30 GM TUBE TP PRN ×2 (10:07→21:11)
[2016-08-04] MEDS ORDERED: QUEtiapine FUMARATE 50 MG TABLET ONE (19:40)
[2016-08-04] MEDS: THIAMINE HCL 100 MG TABLET (FP) PO SCH (21:11)
[2016-08-04] MEDS: QUEtiapine FUMARATE 100 MG TABLET (FP) PO SCH (21:12)
[2016-08-05] MEDS ORDERED: METHADONE HCL 40 MG DISPERSABLE TABLET ONE (05:22)
[2016-08-05] MEDS ORDERED: METHADONE HCL 10 MG TABLET ONE (05:22)
[2016-08-05] MEDS: METHADONE 40 MG, METHADONE 30 MG PO SCH (06:14)
[2016-08-05] MEDS: DOCUSATE SODIUM 100 MG CAPSULE (FP) PO SCH ×3 (06:14→21:19)
[2016-08-05] MEDS: NICOTINE POLACRILEX 2 MG GUM BUC PRN (06:15)
--- NOTE | 2016-08-05 09:44 | PN ---
[facility] Progress Note Note: PT. WAS SENT TO ER ON 08/02/16 BECAUSE OF FEVER OF 102.3F TO 102.9F. PT. WAS STARTED ON 08/01/16ON [id number] FOR PHARYNGITIS. CBC IN THE ED REVEALED A LEUKOCYTOSIS OF 17,600 WITH LEFT SHIFT. BLOOD C&S WERE DRAWN AND PT WAS RETURNED TO REHAB. DR. MIGUEL STILL MD DISCUSSED THE CASE WITH ME. INFLUENZA SWAB = NEGATIVE BLOOD C&S = NEGATIVE PT. HAS BEEN AFEBRILE X 48 HOURS. WE'LL REPEAT CBC IN AM
[2016-08-05] MEDS: AZITHROMYCIN 250 MG TABLET (FP) PO SCH (10:41)
[2016-08-05] MEDS: NICOTINE 21 MG/24 HOURS TOPICAL PATCH TD SCH (10:41)
[2016-08-05] MEDS: PRENATAL VITAMINS W/ FOLIC ACID TABLET (FP) PO SCH (10:41)
[2016-08-05] MEDS: FLUoxetine HCL 20 MG CAPSULE (FP) PO SCH (10:41)
[2016-08-05] MEDS: HYDROCORTISONE 1% TOPICAL CREAM 30 GM TUBE TP PRN (10:42)
[2016-08-05] MEDS: hydrOXYzine PAMOATE 50 MG CAPSULE (FP) PO PRN ×2 (10:42→21:19)
[2016-08-05] MEDS: IBUPROFEN 400 MG TABLET (FP) PO PRN (12:48)
--- NOTE | 2016-08-05 12:48 | PN ---
[facility] Progress Note (SOAP) Subjective: feels better no sorethroat or fever Objective: 08/05/16 12:46 Vital Signs Temperature 98.5 F 08/05/16 07:11 Pulse Rate 70 08/05/16 07:11 Respiratory Rate 16 08/05/16 07:11 Blood Pressure 108/68 08/05/16 07:11 O2 Sat by Pulse Oximetry (%) blood cx x 2 -negative flu swab a& b - negative 08/05/16 12:48 oral clear no erythema or exudateds Assessment: 08/05/16 12:48 resolving pharyngitis/viral synd Plan: cont present tx increase fluids repeat cbc.
[2016-08-05] MEDS: NICOTINE POLACRILEX 4 MG GUM BUC PRN ×2 (13:27→21:21)
[2016-08-05] MEDS: QUEtiapine FUMARATE 100 MG TABLET (FP) PO SCH (21:19)
[2016-08-05] MEDS: THIAMINE HCL 100 MG TABLET (FP) PO SCH (21:19)
[2016-08-06] MEDS ORDERED: METHADONE HCL 40 MG DISPERSABLE TABLET ONE (04:17)
[2016-08-06] MEDS ORDERED: METHADONE HCL 10 MG TABLET ONE (04:17)
[2016-08-06] MEDS: DOCUSATE SODIUM 100 MG CAPSULE (FP) PO SCH ×3 (05:47→21:00)
[2016-08-06] MEDS: FLUoxetine HCL 20 MG CAPSULE (FP) PO SCH (05:47)
[2016-08-06] MEDS: METHADONE 40 MG, METHADONE 30 MG PO SCH (05:48)
[2016-08-06] MEDS: NICOTINE POLACRILEX 4 MG GUM BUC PRN ×3 (05:48→17:55)
[2016-08-06] MEDS ORDERED: METHADONE HCL 10 MG TABLET PO SCH (06:00)
[2016-08-06] MEDS: hydrOXYzine PAMOATE 50 MG CAPSULE (FP) PO PRN ×3 (10:05→19:10)
[2016-08-06] MEDS: PRENATAL VITAMINS W/ FOLIC ACID TABLET (FP) PO SCH (10:05)
[2016-08-06] MEDS: NICOTINE 21 MG/24 HOURS TOPICAL PATCH TD SCH (10:06)
[2016-08-06 10:11] LABS: BASOPHIL 0.6 % (0-2.0); EOSINOPHIL 5.6 % (0-4.5); MCH 31.1 pg (25.7-33.7); MEAN CELL VOLUME 88.8 fl (80-96); MEAN PLT VOLUME 8.7 fl (7.5-11.1); NEUTROPHILS 52.6 % (42.8-82.8); PLATELET COUNT 253 K/MM3 (134-434); RDW 12.5 % (11.9-15.9); WHITE BLOOD COUNT 8.4 K/mm3 (4.0-10.0)
[2016-08-06] MEDS: THIAMINE HCL 100 MG TABLET (FP) PO SCH (21:00)
[2016-08-06] MEDS: QUEtiapine FUMARATE 100 MG TABLET (FP) PO SCH (21:00)
[2016-08-07] MEDS ORDERED: METHADONE HCL 10 MG TABLET ONE (04:11)
[2016-08-07] MEDS ORDERED: METHADONE HCL 40 MG DISPERSABLE TABLET ONE (04:11)
[2016-08-07] MEDS: FLUoxetine HCL 20 MG CAPSULE (FP) PO SCH (06:22)
[2016-08-07] MEDS: METHADONE 40 MG, METHADONE 30 MG PO SCH (06:22)
[2016-08-07] MEDS: DOCUSATE SODIUM 100 MG CAPSULE (FP) PO SCH ×3 (06:22→21:04)
[2016-08-07] MEDS: NICOTINE POLACRILEX 4 MG GUM BUC PRN ×4 (06:22→21:04)
[2016-08-07] MEDS: NICOTINE 21 MG/24 HOURS TOPICAL PATCH TD SCH (10:02)
[2016-08-07] MEDS: PRENATAL VITAMINS W/ FOLIC ACID TABLET (FP) PO SCH (10:02)
[2016-08-07] MEDS: hydrOXYzine PAMOATE 50 MG CAPSULE (FP) PO PRN ×3 (10:03→21:04)
[2016-08-07] MEDS: MAG HYDROX/AL HYDROX/SIMETH 30 ML UNIT-DOSE CUP PO PRN (10:04)
[2016-08-07] MEDS: QUEtiapine FUMARATE 100 MG TABLET (FP) PO SCH (21:04)
[2016-08-07] MEDS: THIAMINE HCL 100 MG TABLET (FP) PO SCH (21:04)
[2016-08-08] MEDS ORDERED: METHADONE HCL 40 MG DISPERSABLE TABLET ONE (03:46)
[2016-08-08] MEDS ORDERED: METHADONE HCL 10 MG TABLET ONE (03:46)
[2016-08-08] MEDS: FLUoxetine HCL 20 MG CAPSULE (FP) PO SCH (06:14)
[2016-08-08] MEDS: DOCUSATE SODIUM 100 MG CAPSULE (FP) PO SCH ×3 (06:14→21:14)
[2016-08-08] MEDS: METHADONE 40 MG, METHADONE 30 MG PO SCH (06:14)
[2016-08-08] MEDS: NICOTINE POLACRILEX 4 MG GUM BUC PRN ×5 (07:02→17:25)
[2016-08-08] MEDS: NICOTINE 21 MG/24 HOURS TOPICAL PATCH TD SCH (09:51)
[2016-08-08] MEDS: hydrOXYzine PAMOATE 50 MG CAPSULE (FP) PO PRN ×2 (09:51→17:24)
[2016-08-08] MEDS: PRENATAL VITAMINS W/ FOLIC ACID TABLET (FP) PO SCH (09:51)
[2016-08-08] MEDS: THIAMINE HCL 100 MG TABLET (FP) PO SCH (21:14)
[2016-08-08] MEDS: QUEtiapine FUMARATE 100 MG TABLET (FP) PO SCH (21:14)
[2016-08-09] MEDS ORDERED: METHADONE HCL 40 MG DISPERSABLE TABLET ONE (04:26)
[2016-08-09] MEDS ORDERED: METHADONE HCL 10 MG TABLET ONE (04:26)
[2016-08-09] MEDS: DOCUSATE SODIUM 100 MG CAPSULE (FP) PO SCH ×3 (06:09→21:09)
[2016-08-09] MEDS: FLUoxetine HCL 20 MG CAPSULE (FP) PO SCH (06:09)
[2016-08-09] MEDS: METHADONE 40 MG, METHADONE 30 MG PO SCH (06:09)
[2016-08-09] MEDS: NICOTINE POLACRILEX 4 MG GUM BUC PRN ×6 (06:09→21:10)
[2016-08-09] MEDS: PRENATAL VITAMINS W/ FOLIC ACID TABLET (FP) PO SCH (09:57)
[2016-08-09] MEDS: NICOTINE 21 MG/24 HOURS TOPICAL PATCH TD SCH (09:57)
[2016-08-09] MEDS: hydrOXYzine PAMOATE 50 MG CAPSULE (FP) PO PRN ×4 (09:57→21:09)
[2016-08-09] MEDS: HYDROCORTISONE 1% TOPICAL CREAM 30 GM TUBE TP PRN (12:18)
[2016-08-09] MEDS: QUEtiapine FUMARATE 100 MG TABLET (FP) PO SCH (21:09)
[2016-08-09] MEDS: THIAMINE HCL 100 MG TABLET (FP) PO SCH (21:09)
[2016-08-10] MEDS ORDERED: METHADONE HCL 10 MG TABLET ONE (05:35)
[2016-08-10] MEDS ORDERED: METHADONE HCL 40 MG DISPERSABLE TABLET ONE (05:35)
[2016-08-10] MEDS: hydrOXYzine PAMOATE 50 MG CAPSULE (FP) PO PRN ×3 (06:50→21:13)
[2016-08-10] MEDS: METHADONE 40 MG, METHADONE 30 MG PO SCH (06:51)
[2016-08-10] MEDS: FLUoxetine HCL 20 MG CAPSULE (FP) PO SCH (06:51)
[2016-08-10] MEDS: DOCUSATE SODIUM 100 MG CAPSULE (FP) PO SCH ×3 (06:51→21:14)
[2016-08-10] MEDS: NICOTINE 21 MG/24 HOURS TOPICAL PATCH TD SCH (10:12)
[2016-08-10] MEDS: PRENATAL VITAMINS W/ FOLIC ACID TABLET (FP) PO SCH (10:12)
[2016-08-10] MEDS: NICOTINE POLACRILEX 4 MG GUM BUC PRN ×3 (10:12→21:13)
[2016-08-10] MEDS: THIAMINE HCL 100 MG TABLET (FP) PO SCH (21:13)
[2016-08-10] MEDS: QUEtiapine FUMARATE 100 MG TABLET (FP) PO SCH (21:13)
[2016-08-11] MEDS ORDERED: METHADONE HCL 10 MG TABLET ONE (05:40)
[2016-08-11] MEDS ORDERED: METHADONE HCL 40 MG DISPERSABLE TABLET ONE (05:40)
[2016-08-11] MEDS: hydrOXYzine PAMOATE 50 MG CAPSULE (FP) PO PRN ×4 (06:21→21:06)
[2016-08-11] MEDS: NICOTINE POLACRILEX 4 MG GUM BUC PRN ×6 (06:21→21:06)
[2016-08-11] MEDS: METHADONE 40 MG, METHADONE 30 MG PO SCH (06:21)
[2016-08-11] MEDS: DOCUSATE SODIUM 100 MG CAPSULE (FP) PO SCH ×3 (06:21→21:06)
[2016-08-11] MEDS: FLUoxetine HCL 20 MG CAPSULE (FP) PO SCH (06:24)
[2016-08-11] MEDS: NICOTINE 21 MG/24 HOURS TOPICAL PATCH TD SCH (09:43)
[2016-08-11] MEDS: PRENATAL VITAMINS W/ FOLIC ACID TABLET (FP) PO SCH (09:44)
[2016-08-11] MEDS: THIAMINE HCL 100 MG TABLET (FP) PO SCH (21:06)
[2016-08-11] MEDS: QUEtiapine FUMARATE 100 MG TABLET (FP) PO SCH (21:07)
[2016-08-12] MEDS ORDERED: METHADONE HCL 40 MG DISPERSABLE TABLET ONE (04:12)
[2016-08-12] MEDS ORDERED: METHADONE HCL 10 MG TABLET ONE (04:12)
[2016-08-12] MEDS: FLUoxetine HCL 20 MG CAPSULE (FP) PO SCH (06:29)
[2016-08-12] MEDS: hydrOXYzine PAMOATE 50 MG CAPSULE (FP) PO PRN ×4 (06:30→21:29)
[2016-08-12] MEDS: DOCUSATE SODIUM 100 MG CAPSULE (FP) PO SCH ×3 (06:30→21:27)
[2016-08-12] MEDS: METHADONE 40 MG, METHADONE 30 MG PO SCH (06:30)
[2016-08-12] MEDS: NICOTINE 21 MG/24 HOURS TOPICAL PATCH TD SCH (10:06)
[2016-08-12] MEDS: PRENATAL VITAMINS W/ FOLIC ACID TABLET (FP) PO SCH (10:06)
[2016-08-12] MEDS: NICOTINE POLACRILEX 4 MG GUM BUC PRN ×4 (12:14→21:29)
[2016-08-12] MEDS: QUEtiapine FUMARATE 100 MG TABLET (FP) PO SCH (21:27)
[2016-08-12] MEDS: THIAMINE HCL 100 MG TABLET (FP) PO SCH (21:27)
[2016-08-13] MEDS ORDERED: METHADONE HCL 40 MG DISPERSABLE TABLET ONE (05:38)
[2016-08-13] MEDS ORDERED: METHADONE HCL 10 MG TABLET ONE (05:38)
[2016-08-13] MEDS: METHADONE 40 MG, METHADONE 30 MG PO SCH (06:16)
[2016-08-13] MEDS: FLUoxetine HCL 20 MG CAPSULE (FP) PO SCH (06:16)
[2016-08-13] MEDS: hydrOXYzine PAMOATE 50 MG CAPSULE (FP) PO PRN ×4 (06:16→21:05)
[2016-08-13] MEDS: DOCUSATE SODIUM 100 MG CAPSULE (FP) PO SCH ×3 (06:16→21:05)
[2016-08-13] MEDS: NICOTINE POLACRILEX 4 MG GUM BUC PRN ×6 (06:17→21:05)
[2016-08-13] MEDS: MAG HYDROX/AL HYDROX/SIMETH 30 ML UNIT-DOSE CUP PO PRN (08:38)
[2016-08-13] MEDS: NICOTINE 21 MG/24 HOURS TOPICAL PATCH TD SCH (10:01)
[2016-08-13] MEDS: PRENATAL VITAMINS W/ FOLIC ACID TABLET (FP) PO SCH (10:01)
[2016-08-13] MEDS: QUEtiapine FUMARATE 100 MG TABLET (FP) PO SCH (21:04)
[2016-08-13] MEDS: THIAMINE HCL 100 MG TABLET (FP) PO SCH (21:04)
[2016-08-14] MEDS ORDERED: METHADONE HCL 10 MG TABLET ONE (04:16)
[2016-08-14] MEDS ORDERED: METHADONE HCL 40 MG DISPERSABLE TABLET ONE (04:16)
[2016-08-14] MEDS: METHADONE 40 MG, METHADONE 30 MG PO SCH (06:30)
[2016-08-14] MEDS: hydrOXYzine PAMOATE 50 MG CAPSULE (FP) PO PRN ×4 (06:31→21:04)
[2016-08-14] MEDS: FLUoxetine HCL 20 MG CAPSULE (FP) PO SCH (06:31)
[2016-08-14] MEDS: DOCUSATE SODIUM 100 MG CAPSULE (FP) PO SCH ×3 (06:31→21:04)
[2016-08-14] MEDS: NICOTINE POLACRILEX 4 MG GUM BUC PRN ×3 (06:33→14:12)
[2016-08-14] MEDS: NICOTINE 21 MG/24 HOURS TOPICAL PATCH TD SCH (09:50)
[2016-08-14] MEDS: PRENATAL VITAMINS W/ FOLIC ACID TABLET (FP) PO SCH (09:50)
[2016-08-14] MEDS: ACETAMINOPHEN 325 MG TABLET (FP) PO PRN (14:12)
[2016-08-14] MEDS: THIAMINE HCL 100 MG TABLET (FP) PO SCH (21:04)
[2016-08-14] MEDS: QUEtiapine FUMARATE 100 MG TABLET (FP) PO SCH (21:04)
[2016-08-15] MEDS ORDERED: METHADONE HCL 40 MG DISPERSABLE TABLET ONE (05:29)
[2016-08-15] MEDS ORDERED: METHADONE HCL 10 MG TABLET ONE (05:29)
[2016-08-15] MEDS: METHADONE 40 MG, METHADONE 30 MG PO SCH (06:19)
[2016-08-15] MEDS: FLUoxetine HCL 20 MG CAPSULE (FP) PO SCH (06:19)
[2016-08-15] MEDS: DOCUSATE SODIUM 100 MG CAPSULE (FP) PO SCH ×3 (06:19→21:16)
[2016-08-15] MEDS: hydrOXYzine PAMOATE 50 MG CAPSULE (FP) PO PRN ×4 (06:19→21:15)
[2016-08-15 07:45] VITALS: PULSE 66
[2016-08-15] MEDS: NICOTINE POLACRILEX 4 MG GUM BUC PRN ×5 (08:46→21:16)
[2016-08-15] MEDS: PRENATAL VITAMINS W/ FOLIC ACID TABLET (FP) PO SCH (10:19)
[2016-08-15] MEDS: NICOTINE 14 MG/24 HOURS TOPICAL PATCH TD SCH (10:20)
--- NOTE | 2016-08-15 14:43 | PN ---
Psychiatric Progress Note Vital Signs: Vital Signs Period Temp Pulse Resp BP Sys/Olivares Pulse Ox Last 24 Hr 98.4 F 66 18-18 106/73 Date of Session: 08/15/16 Chief Complaint:: Psychiatrist Discharge Note HPI: Patient addressing Opoid and Sedative Dependence comorbid with Nicotine Dependence and Anxiety Disorder ROS: Unremarkable Current Medications: Active Medications Generic Name Dose Route Start Last Admin Trade Name Freq PRN Reason Stop Dose Admin Acetaminophen 650 mg 07/26/16 14:38 08/14/16 14:12 Tylenol - PO 650 mg Q4H PRN Administration FEVER OR PAIN Al Hydroxide/Mg Hydroxide 30 ml 07/26/16 14:38 08/13/16 08:38 Mylanta Oral Suspension - PO 30 ml Q6H PRN Administration DYSPEPSIA Diphenhydramine HCl 50 mg 07/26/16 14:38 Benadryl - PO HSMR1 PRN FOR ITCHING Docusate Sodium 100 mg 07/31/16 14:00 08/15/16 14:24 Colace - PO 100 mg TID KELLY Administration Eucalyptus/Menthol/Phenol/Sorbitol 1 each 07/26/16 14:38 08/03/16 10:09 Cepastat Lozenge - MM 1 each Q4H PRN Administration SORE THROAT Fluoxetine HCl 20 mg 08/06/16 06:00 08/15/16 06:19 Prozac - PO 20 mg DAILY@06 KELLY Administration Guaifenesin 10 ml 07/26/16 14:38 08/02/16 19:01 Robitussin Dm - PO 10 ml Q6H PRN Administration COUGH Hydrocortisone 1 applic 07/30/16 15:12 08/09/16 12:18 Hytone 1% Cream - TP 1 applic BID PRN Administration DRY SKIN Hydroxyzine Pamoate 50 mg 07/30/16 11:09 08/15/16 14:24 Vistaril - PO 50 mg Q4H PRN Administration FOR ITCHING Ibuprofen 400 mg 07/26/16 14:38 08/05/16 12:48 Motrin - PO 400 mg Q6H PRN Administration PAIN Loperamide HCl 4 mg 07/26/16 14:38 Imodium - PO Q6H PRN DIARRHEA Magnesium Hydroxide 30 ml 07/26/16 14:38 07/30/16 10:12 Milk Of Magnesia - PO 30 ml DAILY PRN Administration CONSTIPATION Methadone HCl 40 mg/ Methadone 70 mg 08/12/16 06:00 08/15/16 06:19 HCl 30 mg PO 70 mg DAILY@0600 KELLY Administration Nicotine 14 mg 08/15/16 10:00 08/15/16 10:20 Nicoderm Patch - TD 14 mg DAILY KELLY Administration Nicotine Polacrilex 4 mg 08/05/16 12:34 08/15/16 14:24 Nicorette Gum - BUC 4 mg Q2H PRN Administration NICOTINE REPLACEMENT RX Multivit/Folic Acid/Iron 1 tab 07/27/16 10:00 08/15/16 10:19 Vitamins (Sjr) - PO 1 tab DAILY KELLY Administration Pseudoephedrine/Triprolidine 1 combo 07/26/16 14:38 08/01/16 10:07 Actifed - PO 1 combo TID PRN Administration NASAL CONGESTION Quetiapine Fumarate 100 mg 07/26/16 22:00 08/14/16 21:04 Seroquel - PO 100 mg HS KELLY Administration Thiamine HCl 100 mg 07/26/16 22:00 08/14/16 21:04 Vitamin B1 - PO 100 mg HS KELLY Administration Current Side Effect: No Lab tests ordered: Yes Lab tests reviewed: Yes Provider note:: Patient will complete this program on 08/16/16. He has met his treatment goals and will continue to address his issues in outpatient treatment 2 [facility] at [address] [place] [address].He verbalized understanding of the negative consequences of her addiction and the need to establish a sober network in order to maintain sobriety. He responded well to Prozac 20 mg po daily and Seroquel 100 mg po Hs. Script for these medications will be electronically transmitted to [facility] pharmacy at [address] [facility], [place] [address]. He is stable for discharge on 08/16/16 Total face to face time:: 35 Mental Status Exam - Mental Status Exam Alert and Oriented to: Time, Place, Person Cognitive Function: Fair Patient Appearance: Well Groomed Mood: Hopeful, Euthymic Affect: Appropriate Patient Behavior: Cooperative Speech Pattern: Clear Voice Loudness: Normal Thought Process: Intact, Goal Oriented Thought Disorder: Not Present Hallucinations: Denies Suicidal Ideation: Denies Homicidal Ideation: Denies Insight/Judgement: Fair Sleep: Fair Appetite: Good Muscle strength/Tone: Normal Gait/Station: Normal Psychiatric Treatment Plan - Problem List (1) Opioid dependence with withdrawal Current Visit: No (2) Sedative hypnotic or anxiolytic dependence Current Visit: No (3) Nicotine dependence Current Visit: No Qualifiers: Nicotine product type: cigarettes Substance use status: uncomplicated Qualified Code(s): F17.210 - Nicotine dependence, cigarettes, uncomplicated (4) Anxiety disorder Current Visit: Yes (5) Substance-induced anxiety disorder Current Visit: Yes (6) ADHD (attention deficit hyperactivity disorder) Current Visit: Yes (7) YOLANDA (generalized anxiety disorder) Current Visit: Yes Initial treatment plan: Patient will be discharged tomorrow and referred [facility] for [facility] treatment
[2016-08-15] MEDS: QUEtiapine FUMARATE 100 MG TABLET (FP) PO SCH (21:15)
[2016-08-15] MEDS: THIAMINE HCL 100 MG TABLET (FP) PO SCH (21:15)
[2016-08-16] MEDS ORDERED: METHADONE HCL 10 MG TABLET ONE (05:03)
[2016-08-16] MEDS ORDERED: METHADONE HCL 40 MG DISPERSABLE TABLET ONE (05:03)
[2016-08-16] MEDS: METHADONE 40 MG, METHADONE 30 MG PO SCH (06:35)
[2016-08-16] MEDS: hydrOXYzine PAMOATE 50 MG CAPSULE (FP) PO PRN (06:36)
[2016-08-16] MEDS: DOCUSATE SODIUM 100 MG CAPSULE (FP) PO SCH (06:36)
[2016-08-16] MEDS: FLUoxetine HCL 20 MG CAPSULE (FP) PO SCH (06:36)
[2016-08-16] MEDS: NICOTINE POLACRILEX 4 MG GUM BUC PRN ×2 (06:36→09:45)
[2016-08-16 08:17] VITALS: BP 112/74; TEMP 98.3
[2016-08-16] MEDS: NICOTINE 14 MG/24 HOURS TOPICAL PATCH TD SCH (11:46)
[2016-08-16] MEDS: PRENATAL VITAMINS W/ FOLIC ACID TABLET (FP) PO SCH (11:47)
== END 2016-08-16 09:50 | disposition home or self-care (01) | DRG 772 ==
LOC: YASAS 10:44 → Y3W 10:45
PROVIDERS: ADMIT Psychiatry & Neurology Psychiatry; ATTEND Psychiatry & Neurology Psychiatry
PROC: HZ42ZZZ Group Counseling for Substance Abuse Treatment, Cognitive-Behavioral (ICD-10-PCS; principal; 2016-08-16)
DX: F11.23 Opioid dependence with withdrawal (principal); F13.20 Sedative, hypnotic or anxiolytic dependence, uncomplicated; F17.210 Nicotine dependence, cigarettes, uncomplicated; F41.1 Generalized anxiety disorder; F19.280 Other psychoactive substance dependence with psychoactive substance-induced anxiety disorder; F90.9 Attention-deficit hyperactivity disorder, unspecified type
CPT/HCPCS: 36415; 71010-TC; 85025

== ENCOUNTER 2016-08-02 08:33 | Emergency (ER) | payer OTHER ==
[2016-08-02 09:00] VITALS: BP 126/67; PULSE 88; TEMP 98.1; BMI 27.8
--- NOTE | 2016-08-02 09:02 | PDOC ---
[id number] No Limitations - History of Present Illness Initial Comments: 08/02/16 09:17 Mr. Haley is a 26y/o male with a PMH of drug abuse in rehab, presenting to the ED by ambulance today complaining of fever, sore throat, and shortness of breath. He states that his symptoms started approximately 3 days ago (Friday) and he reported these symptoms to the staff at the detox facility. He was seen by the staff at the detox facility and was prescribed azithromycin for pharyngitis. Since reporting his initial symptoms pt. admits to chills, fevers, light headedness, SOB, sore throat, chest congestion, and a productive cough. Denies weight changes, N/V/D, leg pain. Today, he states that his fever was 102 at 06:00 and was given Tylenol which gave some relief. He states that he has been around sick contacts at the facility. Denies recent travel. The staff at the facility took his morning vitals and saw he had a SPO2 of 90% on RA which prompted them to send him to the ED. Timing/Duration: getting worse <Miracle Zaman - Last Filed: 08/05/16 07:49> <Malcolm Alvarado - Last Filed: 08/08/16 10:01> - General Stated Complaint: SHORTNESS OF BREATH Time Seen by Provider: 08/02/16 08:48 Past History - Travel Traveled outside of the country in the last 30 days: No Close contact w/someone who was outside of country & ill: No - Past Medical History Anemia: No Asthma: No Cancer: No Cardiac Disorders: No CVA: No COPD: No CHF: No Dementia: No Diabetes: No GI Disorders: No Disorders: No HTN: No Hypercholesterolemia: No Kidney Stones: No Liver Disease: No Suicide Attempt (Hx): No Seizures: No Thyroid Disease: No - Surgical History Abdominal Surgery: No Appendectomy: No Cardiac Surgery: No Cholecystectomy: No Lung Surgery: No Neurologic Surgery: No Orthopedic Surgery: No - Reproductive History Testicular Surgery: No - Psycho/Social/Smoking Cessation Hx Anxiety: No Suicidal Ideation: No Smoking History: Current every day smoker Have you smoked in the past 12 months: Yes Number of Cigarettes Smoked Daily: 20 Cigars Per Day: 0 'Breaking Loose' booklet given: 07/22/16 Hx Alcohol Use: No Drug/Substance Use Hx: Yes Substance Use Type: Heroin, Opiates, Tranquilizers Hx Substance Use Treatment: No <Miracle Zaman - Last Filed: 08/05/16 07:49> <Malcolm Alvarado - Last Filed: 08/08/16 10:01> - Past Medical History Allergies/Adverse Reactions: Allergies Allergy/AdvReac Type Severity Reaction Status Date / Time No Known Allergies Allergy Verified 08/02/16 09:00 Home Medications: Ambulatory Orders Quetiapine Fumarate [Seroquel] 100 mg PO HS #30 tablet 07/23/16 Fluoxetine HCl [Prozac -] 20 mg PO DAILY 07/26/16 Methadone 70 mg PO DAILY 08/02/16 Multivitamin 1 tab PO DAILY 08/02/16 Nicoderm Patch - 21 mg .ROUTE WEEKLY 08/02/16 Prozac 20 mg PO DAILY 08/02/16 *Physical Exam - Physical Exam Comments: 08/02/16 09:40 General: Pt. in NAD sitting in hosptial bed. AAOx4, warm to the touch HEENT: Head: Atraumatic, normocephalic Eyes: Mild bilateral conjuctivitis, EOMI, PERRLA (+) Ears: Dullness of TM's bilaterally, Normal landmarks present, (-) redness or budging of TM's Nose: No rhinorrhea Throat: Mild redness in posterior pharynx, good dentition Lungs: Course lung sounds at the bases B/L. Equal B/L chest rise CV: R/R/R, S1 S2 present, (-) M/R/G Abdomen: no tenderness x4 , bowel sounds present x4 Extremities: No tenderness in the calves b/l HEENT: positive: EOMI, RADHA, Pharyngeal Erythema, TM Dull (Dull B/L) Neck: positive: Supple. negative: Lymphadenopathy (R), Lymphadenopathy (L) Respiratory/Chest: positive: Other (Course L/S at the bases B/L) Cardiovascular: positive: Regular Rhythm, Regular Rate, S1, S2. negative: Murmur, Gallop/S3 Gastrointestinal/Abdominal: positive: Normal Bowel Sounds, Tender, Flat, Soft <Lisa Zamanca - Last Filed: 08/05/16 07:49> - Vital Signs Last Vital Signs Temp Pulse Resp BP Pulse Ox 98.1 F 88 20 126/67 96 08/02/16 08:35 08/02/16 08:35 08/02/16 08:35 08/02/16 08:35 08/02/16 08:35 <Malcolm Alvarado - Last Filed: 08/08/16 10:01> ED Treatment Course - LABORATORY CBC & Chemistry Diagram: 08/02/16 10:03 08/02/16 10:03 <Miracle Zaman - Last Filed: 08/05/16 07:49> - LABORATORY CBC & Chemistry Diagram: 08/02/16 10:03 08/02/16 10:03 - ADDITIONAL ORDERS Additional order review: 08/02/16 10:03 Blood Culture - Final Blood - Peripheral Venous NO GROWTH AFTER 5 DAYS INCUBATION 08/02/16 10:03 Blood Culture - Final Blood - Peripheral Venous NO GROWTH AFTER 5 DAYS INCUBATION 08/02/16 10:03 Influenza Types A,B Antigen (ABUNDIO) - Final Nasopharyngeal Swab - Final 08/02/16 10:03 RBC 4.67 MCV 89.2 MCHC 34.2 RDW 12.8 MPV 9.2 Neutrophils % 86.9 H Lymphocytes % 6.5 L Monocytes % 5.5 Eosinophils % 0.7 Basophils % 0.4 - RADIOLOGY Radiology Studies Ordered: Category Date Time Status CHEST X-RAY PORTABLE* [RAD] Stat Radiology 08/02/16 09:24 Completed - Medications Given in the ED: ED Medications Discontinued Medications Generic Name Dose Route Start Last Admin Trade Name Freq PRN Reason Stop Dose Admin Sodium Chloride 1,000 mls @ 1,000 mls/hr 08/02/16 09:31 08/02/16 10:10 Normal Saline - IV 08/02/16 10:30 Not Given ASDIR STA Sodium Chloride 1,000 mls @ 1,000 mls/hr 08/02/16 09:32 08/02/16 10:10 Normal Saline - IV 08/02/16 10:31 1,000 mls/hr ASDIR STA Administration Nicotine Polacrilex 2 mg 08/02/16 10:06 08/02/16 15:46 Nicorette Gum - BUC 08/02/16 10:07 2 mg Q2H ONE Administration <Malcolm Alvarado - Last Filed: 08/08/16 10:01> Medical Decision Making - Medical Decision Making 08/02/16 10:21 Pt. is a 26 y/o male with PMH of IV drug use with a CC of SOB and fever 1. Will order labs including blood cultures to r/o pneumonia, influenza 2. Chest x-ray 3. Start fluids for gentle hydration 4. Give nicotine gum 5. PE was considered, but low risk via PERC criteria. 08/05/16 07:49 CXR reveled no acute cardiopulmonary changes or infiltrates. Because of elevated white count and fever of unknown origin, will order echo to r/o endocarditits as the patient is a known IV drug user. Will re-evaluate Echo reveled no obvious vegetation. Will have pt. follow up with rehab facility and will follow blood culture results. <Miracle Zaman - Last Filed: 08/05/16 07:49> - Medical Decision Making 08/08/16 10:01 The patient was seen and evaluated in conjunction with JAMISON Zaman under my direct supervision, ancillary studies were reviewed. I independently interviewed and evaluated the patient and I agree with the plan as outlined by JAMISON Zaman. <Malcolm Alvarado - Last Filed: 08/08/16 10:01> *DC/Admit/Observation/Transfer <Miracle Zaman - Last Filed: 08/05/16 07:49> <Malcolm Alvarado - Last Filed: 08/08/16 10:01> Diagnosis at time of Disposition: Upper respiratory infection Qualifiers: URI type: unspecified viral URI Qualified Code(s): J06.9 - Acute upper respiratory infection, unspecified - Discharge Dispostion Disposition: I.P. ALCOHOL/SUBS ABUSE REHAB Condition at time of disposition: Improved - Patient Instructions Printed Discharge Instructions: DI for Viral Upper Respiratory Infection -- Adult Additional Instructions: Please follow up blood cultures at Rehab (I discussed this with your doctor). If you have any chets pain, persistent fever, shortness of breath or other concerns, return to the emergency department for further evluation. Print Language: UPPER SORBIAN
[2016-08-02] MEDS ORDERED: SODIUM CHLORIDE 1,000 ML IV STA ×2 (09:31→09:32)
--- NOTE | 2016-08-02 09:46 | PDOC ---
*Physical Exam - Vital Signs Last Vital Signs Temp Pulse Resp BP Pulse Ox 98.1 F 88 20 126/67 96 08/02/16 08:35 08/02/16 08:35 08/02/16 08:35 08/02/16 08:35 08/02/16 08:35 Heart Score/ECG Review - ECG Impressions Comment:: 08/02/16 17:56 Twelve-lead EKG was performed and reviewed by me. There is normal sinus rhythm with a rate of 103 The axis is normal. The intervals are normal. There is normal R wave progression There are no ST or T wave abnormalities. Impression: Sinus tachycardia ED Treatment Course - LABORATORY CBC & Chemistry Diagram: 08/02/16 10:03 08/02/16 10:03 - RADIOLOGY Radiology Studies Ordered: Category Date Time Status CHEST X-RAY PORTABLE* [RAD] Stat Radiology 08/02/16 09:24 Ordered Medical Decision Making - Medical Decision Making 08/02/16 09:46 The patient was seen and evaluated in conjunction with JAMISON Zaman under my direct supervision, ancillary studies were reviewed. I independently interviewed and evaluated the patient and I agree with the plan as outlined by JAMISON Zaman . The patient is a 26y M with a history of IV heroin abuse, he recently detoxed over at [facility], and was admitted to rehab. He endorses cough productive of greenish sputum x 2-3 days, associated with mild sore throat and started to have a fever last night, tmax at 102 at rehab was given tylenol. Pt was thought to have pharyngitis and started on azithromycin. No GI or complaints. Pts exam here is fairly unremarkable - posterior pharynx mildly erythemadous w/o exudates, lung exam was clear w/o and rales/rhonchi/wheezing, there was no murmers appreciated on ascultation. Pts abd is soft nontender, no rashes. suspect likely has a URI. will obtain cxr to r/o pna, will ck flu swab. consideration for endocarditis due to the patients use of IV drugs will also obtain blood cultures if flu/cxr negative - will obtain an echo to r/o endocarditis. 08/02/16 17:29 pts labs noted for leukocytosis to 17 with mild left shift. no sources identified currently - cxr neg, ua neg, flu negative the pts TTE showed no signs of vegetations. This does not rule out endocarditis with 100% certainty - but clinically, pts sypmtoms seem viral, there are no murmers appreicated on his exam - will await cultures. if cultures + will send patient back for JUAN. Cse d/w dr. Isaiah Muro - will have him or someone who is taking care of him fu with cultures during his rehab. return precautions were discused *DC/Admit/Observation/Transfer Diagnosis at time of Disposition: Upper respiratory infection Qualifiers: URI type: unspecified viral URI Qualified Code(s): J06.9 - Acute upper respiratory infection, unspecified - Discharge Dispostion Disposition: I.P. ALCOHOL/SUBS ABUSE REHAB Condition at time of disposition: Improved Admit: No - Patient Instructions Printed Discharge Instructions: DI for Viral Upper Respiratory Infection -- Adult Additional Instructions: Please follow up blood cultures at Rehab (I discussed this with your doctor). If you have any chets pain, persistent fever, shortness of breath or other concerns, return to the emergency department for further evluation. Print Language: SURINAMESE
[2016-08-02] MEDS ORDERED: NICOTINE POLACRILEX 2 MG GUM BUC ONE (10:06)
[2016-08-02 10:30] LABS: BASOPHIL 0.4 % (0-2.0); EOSINOPHIL 0.7 % (0-4.5); MCH 30.5 pg (25.7-33.7); MCHC 34.2 g/dl (32.0-35.9); MEAN CELL VOLUME 89.2 fl (80-96); MEAN PLT VOLUME 9.2 fl (7.5-11.1); NEUTROPHILS 86.9 % (42.8-82.8); PLATELET COUNT 210 K/MM3 (134-434); RDW 12.8 % (11.9-15.9); WHITE BLOOD COUNT 17.6 K/mm3 (4.0-10.0)
[2016-08-02 10:34] LABS: URINE APPEARANCE CLEAR; URINE BILIRUBIN NEGATIVE (NEGATIVE); URINE BLOOD NEGATIVE (NEGATIVE); URINE COLOR YELLOW; URINE GLUCOSE (UA) NEGATIVE (NEGATIVE); URINE KETONE NEGATIVE (NEGATIVE); URINE LEUK ESTERASE NEGATIVE (NEGATIVE); URINE NITRITE NEGATIVE (NEGATIVE); URINE PROTEIN NEGATIVE (NEGATIVE); URINE UROBILINOGEN NEGATIVE E.U./dl (0.2-1.0)
[2016-08-02 10:38] LABS: ALBUMIN 3.8 g/dl (3.4-5.0); ANION GAP 7 (8-16); BILIRUBIN,TOTAL 0.7 mg/dL (0.2-1.0); CO2 31 mmol/L (21-32); CREATININE 0.9 mg/dL (0.7-1.3); GLUCOSE,RANDOM 96 mg/dL (74-106); SGOT/AST 32 U/L (15-37); SGPT/ALT 57 U/L (12-78); TOT PROT 7.3 g/dl (6.4-8.2)
[2016-08-02 10:39] LABS: ALK PHOS 91 U/L (45-117)
--- NOTE | 2016-08-02 10:52 | EKG ---
Test Reason : Blood Pressure : / mmHG Vent. Rate : 103 BPM Atrial Rate : 103 BPM P-R Int : 164 ms QRS Dur : 088 ms QT Int : 316 ms P-R-T Axes : 055 039 021 degrees QTc Int : 413 ms SINUS TACHYCARDIA Confirmed by TOREY DAVID MD ([id number]) on 08/02/2016 10:51:59 AM Referred By: Confirmed By:TOREY DAVID MD
== END 2016-08-02 17:58 | disposition other institution (70) ==
LOC: JER 08:33
PROC: 3E0337Z Introduction of Electrolytic and Water Balance Substance into Peripheral Vein, Percutaneous Approach (ICD-10-PCS; principal; 2016-08-02)
DX: J06.9 Acute upper respiratory infection, unspecified (principal); F11.90 Opioid use, unspecified, uncomplicated
CPT/HCPCS: 36415; 71010-TC; 80053; 81003; 83605; 85025; 87040; 87804; 93005; 93010; 93306-TC; 96360; 99282-25

== ENCOUNTER 2017-05-26 08:21 | Inpatient (IN) | payer OTHER ==
[2017-05-26 09:17] VITALS: BMI 25.8
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
[2017-05-26] MEDS ORDERED: guaiFENesin/D-METHORPHAN HB 10 ML UNIT-DOSE CUPS PO PRN (11:08)
[2017-05-26] MEDS ORDERED: MAGNESIUM CITRATE 300 ML BOTTLE PO PRN (11:08)
[2017-05-26] MEDS ORDERED: hydrOXYzine PAMOATE 25 MG CAPSULE (FP) PO PRN (11:08)
[2017-05-26] MEDS ORDERED: P-EPHED 60MG/TRIPROLIDI 2.5MG TABLET PO PRN (11:08)
[2017-05-26] MEDS ORDERED: LOPERAMIDE HCL 2 MG CAPSULE PO PRN (11:08)
[2017-05-26] MEDS ORDERED: MAG HYDROX/AL HYDROX/SIMETH 30 ML UNIT-DOSE CUP PO PRN (11:08)
[2017-05-26] MEDS ORDERED: MENTHOL/PHENOL 1 EACH UD MM PRN (11:08)
[2017-05-26] MEDS ORDERED: IBUPROFEN 400 MG TABLET (FP) PO PRN (11:08)
[2017-05-26] MEDS ORDERED: MAGNESIUM HYDROX 2400MG/30ML ORAL SUSPENSION 30 ML CUP PO PRN (11:08)
[2017-05-26] MEDS ORDERED: ACETAMINOPHEN 325 MG TABLET (FP) PO PRN (11:08)
[2017-05-26] MEDS ORDERED: CYCLOBENZAPRINE HCL 10 MG TABLET (FP) PO PRN (11:15)
[2017-05-26] MEDS ORDERED: METHADONE HCL 10 MG TABLET (FOR DETOX USE ONLY) PO ONE ×2 (12:44→23:00)
[2017-05-26] MEDS: diazePAM 5 MG TABLET PO PRN ×3 (13:44→22:24)
[2017-05-26] MEDS: NICOTINE 21 MG/24 HOURS TOPICAL PATCH TD SCH (13:44)
[2017-05-26] MEDS: NICOTINE POLACRILEX 2 MG GUM BUC PRN ×3 (14:08→22:24)
--- NOTE | 2017-05-26 14:44 | CONSULT ---
[facility] Psychiatric Consult - Data Date of interview: 05/26/17 Admission source: [facility] Identifying data: Readmission to [facility] for this 27 y/o male seeking detox treatment on for heroin and benzodiazepie (xanax) dependence.Patient is single without children,domiciled and supported by relatives. Substance Abuse History: Mr Haley admits to active use of xanax and heroin as described in the following segment of [facility] report : Smoking history: Former smoker. Have you smoked in the past 12 months: Yes. Aproximately how many cigarettes per day: 20. If you are a former smoker, when did you quit?: Not Currently smoking cigarettes. Cigars Per Day: 0. Hx Chewing Tobacco Use: No. Initiated information on smoking cessation: Yes. 'Breaking Loose' booklet given : 05/26/17. - Substance & Tx. History. Hx Alcohol Use: No. Hx Substance Use: Yes. Substance Use Type: Heroin, Tranquilizers. Hx Substance Use Treatment: Yes ([facility] 07/22/16 TO 07/26/16 [facility] 07/26/16 TO 08/16/16). - Substances Abused. Heroin. Route: Injection. Frequency: Daily. Amount used: 40 bags. Age of first use: 23. Date of Last Use: 05/25/17. Xanax. Route: Oral. Frequency: Daily. Amount used: 6 mg. Age of first use: 26. Date of Last Use: 05/24/17 Medical History: Patient denies medical problems. Psychiatric History: No history of psychiatric hospitalizations.First contact with a psychiatrist : age 17.Diagnosed with Anxiety Disorder and prescribed klonopin.More recently,in 2014,the patient received the diagnosis of ADHD ( briefly managed with adderall).Frequent admissions to detox/rehabilitation units at various facilities.Trials of fluoxetine,escitalopram,bupropion, seroquel and other psychotropic medications with questionable effectiveness (non -adherence).Previously known to [facility].No OPD care provider for more than a month.Mr Haley denies history of suicide attempts. Physical/Sexual Abuse/Trauma History: Patient denies. Additional Comment: Urine Drug Screen Results: OPI-Opiates Mental Status Exam - Mental Status Exam Alert and Oriented to: Time, Place, Person Cognitive Function: Good Patient Appearance: Well Groomed Mood: Nervous, Anxious, Hopeful Affect: Appropriate, Normal Range Patient Behavior: Fatigued, Cooperative Speech Pattern: Clear, Appropriate Voice Loudness: Normal Thought Process: Intact, Goal Oriented Thought Disorder: Not Present Hallucinations: Denies Suicidal Ideation: Denies Homicidal Ideation: Denies Insight/Judgement: Poor Sleep: Poorly, Difficulty falling asleep Appetite: Good Muscle strength/Tone: Normal Gait/Station: Normal Psychiatric Findings - Problem List ([place] 1, 2,3) (1) Opioid dependence with withdrawal Current Visit: Yes Status: Acute (2) Sedative, hypnotic or anxiolytic dependence with withdrawal, uncomplicated Current Visit: Yes Status: Acute (3) Nicotine dependence Current Visit: Yes Status: Acute Qualifiers: Nicotine product type: cigarettes Substance use status: uncomplicated Qualified Code(s): F17.210 - Nicotine dependence, cigarettes, uncomplicated (4) Substance induced mood disorder Current Visit: Yes Status: Acute (5) Insomnia Current Visit: Yes Status: Acute - Initial Treatment Plan Initial Treatment Plan: Psychoeducation.Detoxification.Sleep hygiene.Medications : seroquel 100 mg po hs (patient's request).Side effects/ benefits discussed with patient.He declines to take an SSRI agent.Agrees with seroquel.Observation.Pharmacy claims of 04/16/17 are consistent with refills for lexapro 10 mg/day tab # 30/30 days + seroquel 100 mg tab # 30/30 days at [facility] # [id number].Scripts renewed for seroquel and electronically sent to [facility] pharmacy.
[2017-05-26 17:28] LABS: URINE APPEARANCE SLCLOUDY; URINE BILIRUBIN NEGATIVE (NEGATIVE); URINE BLOOD NEGATIVE (NEGATIVE); URINE COLOR DKYELLOW; URINE GLUCOSE (UA) NEGATIVE (NEGATIVE); URINE KETONE NEGATIVE (NEGATIVE); URINE NITRITE NEGATIVE (NEGATIVE); URINE PROTEIN NEGATIVE (NEGATIVE); URINE UROBILINOGEN NEGATIVE mg/dL (0.2-1.0)
--- NOTE | 2017-05-26 17:34 | EKG ---
Test Reason : Blood Pressure : / mmHG Vent. Rate : 069 BPM Atrial Rate : 069 BPM P-R Int : 188 ms QRS Dur : 092 ms QT Int : 392 ms P-R-T Axes : 057 050 051 degrees QTc Int : 420 ms NORMAL SINUS RHYTHM WITH SINUS ARRHYTHMIA NORMAL ECG WHEN COMPARED WITH ECG OF 02-AUG-2016 08:48, VENT. RATE HAS DECREASED BY 34 BPM T WAVE VARIATION Confirmed by CARLOS KEITA MD ([id number]) on 05/26/2017 5:34:11 PM Referred By: Confirmed By:CARLOS KEITA MD
[2017-05-26 19:20] LABS: URINE LEUK ESTERASE Negative (NEGATIVE)
[2017-05-26] MEDS ORDERED: THIAMINE HCL 100 MG TABLET (FP) PO SCH (22:00)
[2017-05-26] MEDS ORDERED: QUEtiapine FUMARATE 100 MG TABLET (FP) PO SCH (22:00)
[2017-05-26] MEDS: cloNIDine HCL 0.1 MG TABLET PO SCH (22:22)
[2017-05-27] MEDS: diazePAM 5 MG TABLET PO PRN (08:55)
[2017-05-27 09:54] LABS: MCHC 33.4 g/dl (32.0-35.9); MEAN CELL VOLUME 89.8 fl (80-96); MEAN PLT VOLUME 10.1 fl (7.5-11.1); PLATELET COUNT 233 K/MM3 (134-434); RDW 12.7 % (11.9-15.9); WHITE BLOOD COUNT 9.6 K/mm3 (4.0-10.0)
[2017-05-27] MEDS ORDERED: PRENATAL VITAMINS W/ FOLIC ACID TABLET (FP) PO SCH (10:00)
[2017-05-27] MEDS ORDERED: METHADONE HCL 10 MG TABLET (FOR DETOX USE ONLY) PO ONE (10:00)
[2017-05-27] MEDS: NICOTINE 21 MG/24 HOURS TOPICAL PATCH TD SCH (10:27)
[2017-05-27] MEDS: cloNIDine HCL 0.1 MG TABLET PO SCH (10:27)
[2017-05-27 10:38] LABS: ALBUMIN 4.5 g/dl (3.4-5.0); ALK PHOS 97 U/L (45-117); ANION GAP 8 (8-16); BILIRUBIN,TOTAL 0.8 mg/dL (0.2-1.0); CALCIUM 9.1 mg/dL (8.5-10.1); CO2 30 mmol/L (21-32); CREATININE 0.9 mg/dL (0.7-1.3); GLUCOSE,RANDOM 99 mg/dL (74-106); SGOT/AST 8 U/L (15-37); SGPT/ALT 20 U/L (12-78); TOT PROT 8.1 g/dl (6.4-8.2)
--- NOTE | 2017-05-27 12:19 | PN ---
S COWS - Scale Resting Pulse: 1= [place] 81-100 Sweatin= Chills/Flushing Restless Observation: 1= Difficult to Sit Still Pupil Size: 0= Normal to Room Light Bone or Joint Aches: 2= Severe Diffuse Aches Runny Nose/ Eye Tearin= None GI Upset > 30mins: 2= Nausea/Diarrhea Tremor Observation of Outstretched Hands: 2= Slight Tremor Visible Yawning Observation: 0= None Anxiety or Irritability: 2=Irritable/Anxious Goose Flesh Skin: 3=Piloerection COWS Score: 14 BHS Progress Note (SOAP) Subjective: Nausea, Tremors, Body Aches, Sweating. Objective: PT. A & O X 3, OBSERVED AMBULATING ON UNIT. NO ACUTE DISTRESS. 05/27/17 12:18 Vital Signs Temperature 97.3 F L 05/27/17 09:21 Pulse Rate 95 H 05/27/17 09:21 Respiratory Rate 18 05/27/17 09:21 Blood Pressure 116/70 05/27/17 09:21 O2 Sat by Pulse Oximetry (%) Laboratory Tests 05/26/17 05/27/17 05/27/17 15:30 05:45 05:45 WBC 9.6 RBC 5.20 Hgb 15.6 Hct 46.7 MCV 89.8 MCH 30.0 MCHC 33.4 RDW 12.7 Plt Count 233 MPV 10.1 D Sodium 139 Potassium 4.4 Chloride 101 Carbon Dioxide 30 Anion Gap 8 BUN 19 H Creatinine 0.9 Creat Clearance w eGFR > 60 Random Glucose 99 Calcium 9.1 Total Bilirubin 0.8 AST 8 L D ALT 20 D Alkaline Phosphatase 97 Total Protein 8.1 Albumin 4.5 Urine Color Dkyellow Urine Appearance Slcloudy Urine pH 6.0 Ur Specific [place] 1.031 Urine Protein Negative Urine Glucose (UA) Negative Urine Ketones Negative Urine Blood Negative Urine Nitrite Negative Urine Bilirubin Negative Urine Urobilinogen Negative Ur Leukocyte Esterase Negative RPR Titer 05/27/17 05:45 WBC RBC Hgb Hct MCV MCH MCHC RDW Plt Count MPV Sodium Potassium Chloride Carbon Dioxide Anion Gap BUN Creatinine Creat Clearance w eGFR Random Glucose Calcium Total Bilirubin AST ALT Alkaline Phosphatase Total Protein Albumin Urine Color Urine Appearance Urine pH Ur Specific [place] Urine Protein Urine Glucose (UA) Urine Ketones Urine Blood Urine Nitrite Urine Bilirubin Urine Urobilinogen Ur Leukocyte Esterase RPR Titer Nonreactive LABS NOTED. Assessment: 05/27/17 12:18 WITHDRAWAL SYMPTOMS. Plan: CONTINUE DETOX. INCREASE DAILY PO FLUID INTAKE.
--- NOTE | 2017-05-27 13:06 | DS ---
[facility] Detox Discharge Summary Admission Date: 05/26/17 Discharge Date: 05/27/17 - History Present History: Opioid Dependence, Sedative Dependence Additional Comments: PATIENT DOES NOT WISH TO STAY TO COMPLETE DETOX REGIMEN. RISKS OF LEAVING DETOX UNIT PRIOR TO COMPLETION OF DETOX REGIMEN EXPLAINED TO PATIENT. PATIENT ADVISED TO GO IMMEDIATELY TO NEAREST ER SHOULD ANY INTOLERABLE DETOX SYMPTOMS DEVELOP AT ANY TIME. PATIENT LEFT DETOX UNIT IN STABLE MEDICAL CONDITION. Pertinent Past History: Depression, Anxiety, Insomnia, Nicotine Dependence. - Physical Exam Results Vital Signs: Vital Signs Temperature 97.3 F L 05/27/17 09:21 Pulse Rate 95 H 05/27/17 09:21 Respiratory Rate 18 05/27/17 09:21 Blood Pressure 116/70 05/27/17 09:21 O2 Sat by Pulse Oximetry (%) Pertinent Admission Physical Exam Findings: WITHDRAWAL SYMPTOMS. Laboratory Tests 05/26/17 05/27/17 05/27/17 15:30 05:45 05:45 WBC 9.6 RBC 5.20 Hgb 15.6 Hct 46.7 MCV 89.8 MCH 30.0 MCHC 33.4 RDW 12.7 Plt Count 233 MPV 10.1 D Sodium 139 Potassium 4.4 Chloride 101 Carbon Dioxide 30 Anion Gap 8 BUN 19 H Creatinine 0.9 Creat Clearance w eGFR > 60 Random Glucose 99 Calcium 9.1 Total Bilirubin 0.8 AST 8 L D ALT 20 D Alkaline Phosphatase 97 Total Protein 8.1 Albumin 4.5 Urine Color Dkyellow Urine Appearance Slcloudy Urine pH 6.0 Ur Specific [place] 1.031 Urine Protein Negative Urine Glucose (UA) Negative Urine Ketones Negative Urine Blood Negative Urine Nitrite Negative Urine Bilirubin Negative Urine Urobilinogen Negative Ur Leukocyte Esterase Negative RPR Titer 05/27/17 05:45 WBC RBC Hgb Hct MCV MCH MCHC RDW Plt Count MPV Sodium Potassium Chloride Carbon Dioxide Anion Gap BUN Creatinine Creat Clearance w eGFR Random Glucose Calcium Total Bilirubin AST ALT Alkaline Phosphatase Total Protein Albumin Urine Color Urine Appearance Urine pH Ur Specific [place] Urine Protein Urine Glucose (UA) Urine Ketones Urine Blood Urine Nitrite Urine Bilirubin Urine Urobilinogen Ur Leukocyte Esterase RPR Titer Nonreactive LABS NOTED. - Treatment Hospital Course: Detoxed Safely - Medication Discharge Medications: Ambulatory Orders Fluoxetine HCl [Prozac -] 20 mg PO DAILY 07/26/16 Quetiapine Fumarate [Seroquel] 100 mg PO HS #30 tablet 08/15/16 Quetiapine Fumarate [Seroquel] 100 mg PO HS #30 tablet 05/26/17 - Diagnosis (1) Opioid dependence with withdrawal Current Visit: Yes Status: Acute (2) Insomnia secondary to depression with anxiety Current Visit: Yes Status: Acute (3) Nicotine dependence Current Visit: Yes Status: Acute Qualifiers: Nicotine product type: cigarettes Substance use status: uncomplicated Qualified Code(s): F17.210 - Nicotine dependence, cigarettes, uncomplicated (4) Sedative, hypnotic or anxiolytic dependence with withdrawal, uncomplicated Current Visit: Yes Status: Acute (5) Substance induced mood disorder Current Visit: Yes Status: Acute (6) Weight loss Current Visit: No Status: Acute - AMA Did Patient Leave Against Medical Advice: Yes (PATIENT DID NOT WISH TO STAY TO COMPLETE DETOX REGIMEN.)
[2017-05-27 13:22] VITALS: BP 111/71; PULSE 98; TEMP 97
[2017-05-28] MEDS ORDERED: METHADONE HCL 5 MG TABLET (FOR DETOX USE ONLY) PO ONE (10:00)
[2017-05-29] MEDS ORDERED: METHADONE HCL 5 MG TABLET (FOR DETOX USE ONLY) PO ONE (10:00)
[2017-05-30] MEDS ORDERED: METHADONE HCL 10 MG TABLET (FOR DETOX USE ONLY) PO ONE (10:00)
[2017-05-31] MEDS ORDERED: METHADONE HCL 5 MG TABLET (FOR DETOX USE ONLY) PO ONE (06:00)
== END 2017-05-27 13:00 | disposition left against medical advice (07) | DRG 770 ==
LOC: YASAS 08:21 → Y3N 11:20
PROVIDERS: ADMIT Internal Medicine; ATTEND Internal Medicine
PROC: HZ2ZZZZ Detoxification Services for Substance Abuse Treatment (ICD-10-PCS; principal; 2017-05-26)
DX: F11.23 Opioid dependence with withdrawal (principal); F13.230 Sedative, hypnotic or anxiolytic dependence with withdrawal, uncomplicated; F17.210 Nicotine dependence, cigarettes, uncomplicated; F19.24 Other psychoactive substance dependence with psychoactive substance-induced mood disorder; F51.05 Insomnia due to other mental disorder; G47.9 Sleep disorder, unspecified; F41.8 Other specified anxiety disorders; R63.4 Abnormal weight loss; Z68.25 Body mass index [BMI] 25.0-25.9, adult
CPT/HCPCS: 36415; 80053; 81003; 85027; 86593; 93005; 93010

== ENCOUNTER 2018-03-26 13:15 | Inpatient (IN) | payer OTHER ==
[2018-03-26 14:54] VITALS: BMI 25.8
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
[2018-03-26] MEDS ORDERED: diazePAM 5 MG TABLET PO ONE (20:36)
[2018-03-26] MEDS ORDERED: IBUPROFEN 400 MG TABLET (FP) PO PRN (20:36)
[2018-03-26] MEDS ORDERED: METHADONE HCL 10 MG TABLET (FOR DETOX USE ONLY) PO ONE ×2 (20:36→23:00)
[2018-03-26] MEDS ORDERED: guaiFENesin/D-METHORPHAN HB 10 ML UNIT-DOSE CUPS PO PRN (20:36)
[2018-03-26] MEDS ORDERED: MAG HYDROX/AL HYDROX/SIMETH 30 ML UNIT-DOSE CUP PO PRN (20:36)
[2018-03-26] MEDS ORDERED: MENTHOL/PHENOL 1 EACH UD MM PRN (20:36)
[2018-03-26] MEDS ORDERED: MAGNESIUM HYDROX 2400MG/30ML ORAL SUSPENSION 30 ML CUP PO PRN (20:36)
[2018-03-26] MEDS ORDERED: ACETAMINOPHEN 325 MG TABLET (FP) PO PRN (20:36)
[2018-03-26] MEDS ORDERED: P-EPHED 60MG/TRIPROLIDI 2.5MG TABLET PO PRN (20:36)
[2018-03-26] MEDS ORDERED: MAGNESIUM CITRATE 300 ML BOTTLE PO PRN (20:36)
[2018-03-26] MEDS ORDERED: LOPERAMIDE HCL 2 MG CAPSULE PO PRN (20:36)
[2018-03-26] MEDS ORDERED: MELATONIN 5 MG TABLETS PO PRN (22:00)
[2018-03-26] MEDS: DOCUSATE SODIUM 100 MG CAPSULE (FP) PO SCH (22:29)
[2018-03-26] MEDS: THIAMINE HCL 100 MG TABLET (FP) PO SCH (22:29)
[2018-03-26] MEDS: diazePAM 5 MG TABLET PO SCH (22:59)
[2018-03-27] MEDS: diazePAM 5 MG TABLET PO SCH ×3 (05:48→22:05)
[2018-03-27] MEDS: NICOTINE POLACRILEX 2 MG GUM BUC PRN ×3 (05:49→12:56)
--- NOTE | 2018-03-27 09:34 | EKG ---
Test Reason : Blood Pressure : / mmHG Vent. Rate : 065 BPM Atrial Rate : 065 BPM P-R Int : 188 ms QRS Dur : 090 ms QT Int : 398 ms P-R-T Axes : 063 061 058 degrees QTc Int : 413 ms NORMAL SINUS RHYTHM MODERATE VOLTAGE CRITERIA FOR LVH, MAY BE NORMAL VARIANT WHEN COMPARED WITH ECG OF 26-JUN-2017 20:37, NO SIGNIFICANT CHANGE WAS FOUND Confirmed by TOREY DAVID MD ([id number]) on 03/27/2018 9:34:45 AM Referred By: Confirmed By:TOREY DAVID MD
[2018-03-27] MEDS ORDERED: METHADONE HCL 10 MG TABLET (FOR DETOX USE ONLY) PO SCH (10:00)
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
[2018-03-27] MEDS: diazePAM 5 MG TABLET PO PRN ×2 (10:30→18:43)
[2018-03-27] MEDS: PRENATAL VITAMINS W/ FOLIC ACID TABLET (FP) PO SCH (10:30)
[2018-03-27] MEDS: NICOTINE 21 MG/24 HOURS TOPICAL PATCH TD SCH (10:31)
[2018-03-27] MEDS: ESCITALOPRAM OXALATE 10 MG TABLET (FP) PO SCH (10:41)
[2018-03-27 11:04] LABS: HEMATOCRIT 41.7 % (35.4-49); HEMOGLOBIN 14.1 GM/dL (11.7-16.9); MCH 30.9 pg (25.7-33.7); MCHC 33.8 g/dl (32.0-35.9); MEAN CELL VOLUME 91.2 fl (80-96); MEAN PLT VOLUME 8.8 fl (7.5-11.1); PLATELET COUNT 200 K/MM3 (134-434); RBC 4.57 M/mm3 (4.00-5.60); RDW 13.3 % (11.9-15.9); WHITE BLOOD COUNT 6.6 K/mm3 (4.0-10.0)
[2018-03-27 11:18] LABS: ALBUMIN 3.9 g/dl (3.4-5.0); ANION GAP 12 MMOL/L (8-16); BLOOD UREA NITROGEN 20 mg/dL (7-18); CHLORIDE 104 mmol/L (98-107); CO2 26 mmol/L (21-32); GLUCOSE,RANDOM 86 mg/dL (74-106); POTASSIUM 4.1 mmol/L (3.5-5.1); SODIUM 142 mmol/L (136-145)
[2018-03-27 11:22] LABS: ALK PHOS 81 U/L (45-117); BILIRUBIN,TOTAL 0.5 mg/dL (0.2-1.0); CREATININE 0.9 mg/dL (0.55-1.3); SGOT/AST 17 U/L (15-37); SGPT/ALT 42 U/L (13-61); TOT PROT 7.2 g/dl (6.4-8.2)
--- NOTE | 2018-03-27 12:21 | PN ---
[facility] CIWA - CIWA Score Nausea/Vomitin Muscle Tremors: 2 Anxiety: 3 Agitation: 2 Paroxysmal Sweats: 3 Orientation: 0-Oriented Tacttile Disturbances: 1-Very Mild Itch/Numbness Auditory Disturbances: 0-None Visual Disturbances: 0-None Headache: 0-None Present CIWA-Ar Total Score: 13 S COWS - Scale Resting Pulse: 0= DC 80 or Below Sweatin=Flushed/Facial Moisture Restless Observation: 1= Difficult to Sit Still Pupil Size: 1= Pupils >than Normal Bone or Joint Aches: 1= Mild Discomfort Runny Nose/ Eye Tearin= Nasal Congestion GI Upset > 30mins: 1= Stomach Cramp Tremor Observation of Outstretched Hands: 1= Tremor [place], Not Seen Yawning Observation: 0= None Anxiety or Irritability: 2=Irritable/Anxious Goose Flesh Skin: 0=Smooth Skin COWS Score: 10 S Progress Note (SOAP) Subjective: INTERRUPTED SLEEP, SWEATS, ANXIOUS Objective: 03/27/18 12:24 Vital Signs Temperature 98 F 03/27/18 09:48 Pulse Rate 82 03/27/18 09:48 Respiratory Rate 16 03/27/18 09:48 Blood Pressure 105/61 03/27/18 09:48 O2 Sat by Pulse Oximetry (%) Laboratory Tests 03/27/18 03/27/18 07:20 07:20 WBC 6.6 RBC 4.57 Hgb 14.1 Hct 41.7 MCV 91.2 MCH 30.9 MCHC 33.8 RDW 13.3 Plt Count 200 MPV 8.8 Sodium 142 Potassium 4.1 Chloride 104 Carbon Dioxide 26 Anion Gap 12 BUN 20 H Creatinine 0.9 Creat Clearance w eGFR > 60 Random Glucose 86 Calcium 9.0 Total Bilirubin 0.5 AST 17 ALT 42 Alkaline Phosphatase 81 Total Protein 7.2 Albumin 3.9 PENDING LABS PT AOX3 IN NAD AMBULATING Assessment: 03/27/18 12:24 WITHDRAWAL SX'S Plan: CONT. DETOX INCREASE FLUIDS F/UP PENDING LABS
[2018-03-27] MEDS ORDERED: QUEtiapine FUMARATE 50 MG TABLET PO SCH (22:00)
[2018-03-27] MEDS: THIAMINE HCL 100 MG TABLET (FP) PO SCH (22:05)
[2018-03-27] MEDS: DOCUSATE SODIUM 100 MG CAPSULE (FP) PO SCH (22:05)
[2018-03-28] MEDS: diazePAM 5 MG TABLET PO PRN ×3 (07:54→17:15)
[2018-03-28] MEDS ORDERED: METHADONE HCL 5 MG TABLET (FOR DETOX USE ONLY) PO SCH (10:00)
[2018-03-28] MEDS ORDERED: diazePAM 5 MG TABLET PO SCH (10:00)
[2018-03-28] MEDS: ESCITALOPRAM OXALATE 10 MG TABLET (FP) PO SCH (10:14)
[2018-03-28] MEDS: NICOTINE POLACRILEX 2 MG GUM BUC PRN ×3 (10:15→15:50)
[2018-03-28] MEDS: PRENATAL VITAMINS W/ FOLIC ACID TABLET (FP) PO SCH (10:15)
[2018-03-28] MEDS: NICOTINE 21 MG/24 HOURS TOPICAL PATCH TD SCH (10:16)
[2018-03-28 10:55] LABS: URINE APPEARANCE CLEAR; URINE BILIRUBIN NEGATIVE (<2.0 mg/dL); URINE COLOR LTYELLOW; URINE GLUCOSE (UA) NEGATIVE (NEGATIVE); URINE KETONE NEGATIVE (NEGATIVE); URINE LEUK ESTERASE NEGATIVE (NEGATIVE); URINE NITRITE NEGATIVE (NEGATIVE); URINE PROTEIN NEGATIVE (NEGATIVE); URINE UROBILINOGEN NEGATIVE mg/dL (0.2-1.0)
--- NOTE | 2018-03-28 16:12 | PN ---
[facility] CIWA - CIWA Score Nausea/Vomitin-No Nausea/No Vomiting Muscle Tremors: 1-None Visible, but [place] Anxiety: 0-No Anxiety, at Ease Agitation: 1-Slight > Activity Paroxysmal Sweats: 1-Minimal [place] Moist Orientation: 0-Oriented Tacttile Disturbances: 0-None Auditory Disturbances: 0-None Visual Disturbances: 0-None Headache: 0-None Present CIWA-Ar Total Score: 3 S COWS - Scale Resting Pulse: 0= [place] 80 or Below Sweatin= No chills or Flushing Restless Observation: 0= Sits Still Pupil Size: 0= Normal to Room Light Bone or Joint Aches: 1= Mild Discomfort Runny Nose/ Eye Tearin= None GI Upset > 30mins: 0= None Tremor Observation of Outstretched Hands: 0= None Yawning Observation: 0= None Anxiety or Irritability: 0= None Goose Flesh Skin: 0=Smooth Skin COWS Score: 1 [facility] Progress Note (SOAP) Subjective: pt states he is fine, doing well with detox O: Vital Signs - 24 hr 03/27/18 03/27/18 03/28/18 18:20 22:28 00:30 Temperature 98.1 F 98.1 F Pulse Rate 85 75 Respiratory 20 20 18 Rate Blood Pressure 114/72 117/71 03/28/18 03/28/18 03/28/18 03:30 07:51 08:55 Temperature 97.7 F 98.1 F Pulse Rate 61 65 Respiratory 18 18 16 Rate Blood Pressure 120/70 111/79 03/28/18 13:59 Temperature 98.2 F Pulse Rate 76 Respiratory 18 Rate Blood Pressure 130/61 Laboratory Tests 03/27/18 03/27/18 03/27/18 07:20 07:20 07:20 WBC 6.6 RBC 4.57 Hgb 14.1 Hct 41.7 MCV 91.2 MCH 30.9 MCHC 33.8 RDW 13.3 Plt Count 200 MPV 8.8 Sodium 142 Potassium 4.1 Chloride 104 Carbon Dioxide 26 Anion Gap 12 BUN 20 H Creatinine 0.9 Creat Clearance w eGFR > 60 Random Glucose 86 Calcium 9.0 Total Bilirubin 0.5 AST 17 ALT 42 Alkaline Phosphatase 81 Total Protein 7.2 Albumin 3.9 Urine Color Urine Appearance Urine pH Ur Specific [place] Urine Protein Urine Glucose (UA) Urine Ketones Urine Blood Urine Nitrite Urine Bilirubin Urine Urobilinogen Ur Leukocyte Esterase RPR Titer Nonreactive HIV 1&2 Antibody Screen HIV P24 Antigen 03/27/18 03/28/18 07:20 07:50 WBC RBC Hgb Hct MCV MCH MCHC RDW Plt Count MPV Sodium Potassium Chloride Carbon Dioxide Anion Gap BUN Creatinine Creat Clearance w eGFR Random Glucose Calcium Total Bilirubin AST ALT Alkaline Phosphatase Total Protein Albumin Urine Color Ltyellow Urine Appearance Clear Urine pH 6.0 Ur Specific [place] 1.016 Urine Protein Negative Urine Glucose (UA) Negative Urine Ketones Negative Urine Blood Negative Urine Nitrite Negative Urine Bilirubin Negative Urine Urobilinogen Negative Ur Leukocyte Esterase Negative RPR Titer HIV 1&2 Antibody Screen Negative HIV P24 Antigen Negative ess nl labs and nl VS a/p: continue detox protocols: OPIOID AND BENZO DEPENDENCE HERE FOR DETOX.
[2018-03-28 18:04] VITALS: BP 133/77; PULSE 83; TEMP 98.4
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
[2018-03-30] MEDS ORDERED: diazePAM 5 MG TABLET PO SCH (10:00)
[2018-03-30] MEDS ORDERED: METHADONE HCL 10 MG TABLET (FOR DETOX USE ONLY) PO SCH (10:00)
[2018-03-31] MEDS ORDERED: METHADONE HCL 5 MG TABLET (FOR DETOX USE ONLY) PO SCH (06:00)
== END 2018-03-28 18:23 | disposition left against medical advice (07) | DRG 770 ==
LOC: YASAS 13:15 → Y6N 19:32
PROC: HZ2ZZZZ Detoxification Services for Substance Abuse Treatment (ICD-10-PCS; principal; 2018-03-26)
DX: F11.23 Opioid dependence with withdrawal (principal); F13.230 Sedative, hypnotic or anxiolytic dependence with withdrawal, uncomplicated; F14.20 Cocaine dependence, uncomplicated; F17.210 Nicotine dependence, cigarettes, uncomplicated; F90.9 Attention-deficit hyperactivity disorder, unspecified type; F19.24 Other psychoactive substance dependence with psychoactive substance-induced mood disorder; F19.282 Other psychoactive substance dependence with psychoactive substance-induced sleep disorder; F41.1 Generalized anxiety disorder; F32.9 Major depressive disorder, single episode, unspecified; K59.03 Drug induced constipation; Z91.89 Other specified personal risk factors, not elsewhere classified
CPT/HCPCS: 36415; 80053; 81003; 85027; 86593; 87389; 93005; 93010